=== PATIENT | male | born 1965 | race Caucasian/White ===

== ENCOUNTER 2018-08-13 15:52 | Inpatient (IN) | payer BC, SELFPAY ==
[~2018-08-13 15:52] MED LIST: Esmolol 100 MG/10 ML VIAL ONE; ISOVUE-370 76%-LOCM 1 ML ONE; Lidocaine 1% PF 5 ML VIAL ONE; PHENYLEPHRINE-NS 100 MCG/ML 10 ML SYRINGE ONE; PROPOFOL 200 MG/20 ML VIAL ONE; Rocuronium Bromide 10 MG/ML (10ML VIAL) ONE; Succinylcholine Chloride 20 MG/ML 10 ml SYRINGE FS ONE
[2018-08-13] MEDS ORDERED: Fentanyl 100 MCG/2 ML VIAL ONE ×3 (15:55→16:48)
[2018-08-13] MEDS ORDERED: Adacel (T-DAP) 0.5 ML SYRINGE ONE (16:04)
[2018-08-13] MEDS ORDERED: Heparin 1,000 UNITS/ML VIAL ONE ×2 (16:15→19:47)
[2018-08-13 16:20] LABS: #Basophils 0.1 thou/uL (0.0-0.2); #Eosinphils 0.2 thou/uL (0.0-0.7); #Monocytes 0.6 thou/uL (0.11-0.59); #Neutrophils 5.2 thou/uL (1.40-6.50); %Basophils 1.2 % (0.0-1.0); %Eosinophils 1.7 % (0.0-10.0); %Lymphocytes 33.1 % (21.0-51.0); %Monocytes 6.2 % (0.0-10.0); %Neutrophils 57.7 % (42.0-75.0); Hemoglobin 14.8 g/dL (14.0-18.0); Mean Corpuscular HGB CONC 33.4 g/dL (32.0-36.0); Mean Corpuscular Hemoglobin 31.1 pg (27.0-31.0); Mean Platelet Volume 7.1 fL (7.4-10.4); Platelet Count 379 thou/uL (130-400); RBC Distribution Width 11.9 % (11.5-14.5); Red Blood Cell (RBC) Count 4.76 mill/uL (4.70-6.10); White Blood Cell (WBC) Count 9.1 thou/uL (4.8-10.8)
[2018-08-13 16:28] LABS: PTT 25.8 SEC (22.9-36.1); Prothrombin Time 13.1 SEC (12.0-14.7)
[2018-08-13 16:30] LABS: Bilirubin Negative (Negative); Blood, Urine Negative (Negative); Clarity CLOUDY (Clear); Glucose, Urine (Dipstick) 100 mg/dL (Negative); Leukocyte Small (Negative); Nitrite Negative (Negative); Protein, Urine (Dipstick) 100 mg/dL (Neg-Trace); Specific Gravity, Urine 1.014 (1.002-1.036); pH, Urine 8.5 (5.0-9.0)
[2018-08-13 16:32] LABS: Bacteria/HPF Rare-Few HPF (None Seen); RBC/HPF 0-3 HPF (0-3); Squamous Epithelial 0-3 HPF (0-3)
[2018-08-13 16:35] LABS: ALT (SGPT) 79 U/L (8-55); AST (SGOT) 83 U/L (5-34); Albumin 3.9 g/dL (3.5-5.0); Alkaline Phosphatase 91 U/L (40-150); Anion Gap 19 mmol/L (10-20); BUN (Urea Nitrogen) 12 mg/dL (8.4-25.7); Bilirubin, Total 0.3 mg/dL (0.2-1.2); Calc. Creatinine Clearance 0 mL/min (70-130); Calcium 9.2 mg/dL (7.8-10.44); Carbon Dioxide 19 mmol/L (22-29); Chloride 101 mmol/L (98-107); Estimated GFR-MDRD 66; Globulin 3.5 g/dL (2.4-3.5); Glucose 198 mg/dL (70-105); Potassium 3.8 mmol/L (3.5-5.1); Protein, Total 7.4 g/dL (6.0-8.3); Sodium 135 mmol/L (136-145)
[2018-08-13 16:41] LABS: Hyaline Casts/LPF 0-3 HYALINE CAST LPF (0-3 Hyaline); Manual Microscopic Reviewed? No Path Casts Seen
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
[2018-08-13] MEDS ORDERED: Ondansetron PF 4 MG/2 ML Vial ONE (17:12)
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
[2018-08-13] MEDS ORDERED: Morphine 2 MG/ML SYRINGE ONE (17:34)
[2018-08-13] MEDS ORDERED: Acetaminophen 1,000 MG in Premix Bag 1 BAG IVPB ONE (17:45)
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
--- NOTE | 2018-08-13 18:06 | RAD ---
PORTABLE SUPINE CHEST 08/13/18 PROVIDED CLINICAL HISTORY: Trauma. FINDINGS: Cardiac and mediastinal silhouette appear prominent, likely at least partially on the basis of portab le technique. No definite focal consolidation evident. Evaluation of pericardial fluid and pneumothor ax is limited due to supine nature of the study. Correlate with the subsequently performed CT chest. IMPRESSION: As above. POS: [facility]
--- NOTE | 2018-08-13 18:08 | RAD ---
PELVIC RADIOGRAPH 08/13/18 PROVIDED CLINICAL HISTORY: Trauma. FINDINGS: The left lateral pelvis and left proximal femur are incompletely included on the image. There is no e vidence for fracture or other acute osseous abnormality. Please correlate with subsequent performed C T. IMPRESSION: As above. POS: [facility]
[2018-08-13] MEDS ORDERED: Neomycin-Polymyxin 1 ML AMP ONE ×2 (18:09→19:20)
--- NOTE | 2018-08-13 18:14 | RAD ---
RIGHT FORELEG RADIOGRAPHS TWO VIEWS 08/13/18 PROVIDED CLINICAL HISTORY: Trauma. Markedly comminuted and displaced fractures of the distal tibial and fibular diaphyses. Partially vis ualized talar fracture. Extensive soft tissue gas. Linear radiodensity overlies the lateral aspect of the distal right foreleg proximal to the fracture sites that may reflect radiopaque foreign body. IMPRESSION: 1. Foreleg and hindfoot fractures as above. 2. Possible soft tissue foreign body. Please correlate with previously performed CT examination . POS: [facility]
[2018-08-13] MEDS ORDERED: Acetaminophen 1,000 MG in Premix Bag 1 BAG IVPB SCH (18:15)
--- NOTE | 2018-08-13 18:17 | RAD ---
RIGHT FEMUR RADIOGRAPHS TWO VIEWS: 08/13/18 PROVIDED CLINICAL HISTORY: Trauma. FINDINGS: There is no evidence for fracture or other acute osseous abnormality. Soft tissue gas is seen at the lateral aspect of the mid thigh. Material overlying the proximal right femoral shaft on the groin lat eral view is presumably external to the patient. IMPRESSION: No evidence for an acute osseous abnormality. If there is persistent clinical concern, conservative m anagement and followup imaging are advised. POS: [facility]
--- NOTE | 2018-08-13 18:18 | RAD ---
RIGHT FOOT RADIOGRAPHS TWO VIEWS: 08/13/18 PROVIDED CLINICAL HISTORY: Trauma. FINDINGS: Talar neck fracture and Lisfranc fracture dislocation. Overlying splint material obscures detail. No definite evidence for foreign body. IMPRESSION: Hindfoot and midfoot fractures, incompletely characterized radiographically. POS: [facility]
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
[2018-08-13] MEDS ORDERED: Albumin 25% 100 ML ONE ×2 (19:48→19:50)
[2018-08-13] MEDS ORDERED: Phenylephrine HCL 10 MG/ML VIAL ONE (21:23)
[2018-08-13] MEDS ORDERED: Rocuronium Bromide 50 MG/5 ML VIAL ONE (21:31)
[2018-08-13 23:06] LABS: Actual Bicarbonate (HCO3a) 19.2 mEq/L (22-28); Base Excess (BEa) -8.7 mEq/L (-2.0 to +3.0); CO2 Tension 50.4 mmHg (35.0-45.0); Calcium, Ionized 1.06 mmol/L (1.12-1.30); Carboxyhemoglobin (COHb) 1.5 gm% (0.0-3.0); Hemoglobin (Hb) 11.3 g/dL (14.0-18.0); O2 Tension (PaO2) 84.4 mmHg (80.0-100.0); Potassium - ABG Lab 6.22 mmol/L (3.70-5.30)
[2018-08-13] MEDS ORDERED: Propofol 1,000 MG/100 ML VIAL IV ONE (23:07)
[2018-08-13] MEDS ORDERED: fentaNYL Citrate/PF 2,000 MCG in Sodium Chloride 0.9% 60 ML IV SCH (23:08)
[2018-08-13 23:19] LABS: Puncture Site ALINE
[2018-08-13] MEDS ORDERED: hydrALAZINE 20 MG/ML VIAL SLOW IVP PRN (23:24)
[2018-08-13] MEDS ORDERED: Dextrose 50% Abboject 50 ML SYRINGE SLOW IVP PRN (23:24)
[2018-08-13] MEDS ORDERED: Dextrose 5% in Water 1,000 ML IV PRN (23:24)
[2018-08-13] MEDS ORDERED: Ventilator Sedation Protocol 1 EACH FS SCH (23:30)
[2018-08-13] MEDS ORDERED: Sodium Chloride 0.9% 1,000 ML IV SCH (23:30)
[2018-08-13] MEDS ORDERED: Morphine 2 MG/ML SYRINGE SLOW IVP PRN (23:34)
[2018-08-13] MEDS ORDERED: DISCONTINUE PREVIOUS NARCOTIC PAIN MEDICATIONS AND BENZODIAZEPINES FS SCH (23:34)
[2018-08-13] MEDS ORDERED: Lorazepam 2 MG/ML VIAL SLOW IVP PRN (23:34)
[2018-08-13] MEDS ORDERED: Propofol 1,000 MG/100 ML VIAL IV PRN (23:34)
[2018-08-13] MEDS ORDERED: Fentanyl BOLUS 250 ML IVPB PRN (23:34)
[2018-08-13] MEDS ORDERED: Propofol BOLUS 1,000 MG/100 ML VIAL IV PRN (23:34)
--- NOTE | 2018-08-13 23:56 | RAD ---
PORTABLE AP CHEST X-RAY 08/13/18 HISTORY: On ventilator, postoperative. COMPARISON: 08/13/18 at 1607 hours. FINDINGS: Endotracheal tube is now noted in place with the tip overlying the T2-3 level and above the level of the kirstie. This exam was obtained in a shallow depth of inspiration accentuating the cardiac silhoue tte and mediastinal structures. There is atelectasis at the right lung base. The lungs otherwise appe ar clear. Layered densities seen in the left suprahilar region probably related to vascular structure s and accentuated due to depth of inspiration. IMPRESSION: 1. Endotracheal tube in place. 2. Atelectasis at each lung base. POS: [facility]
[2018-08-14 00:22] VITALS: BMI 38.4
[2018-08-14] MEDS ORDERED: Cyclobenzaprine 10 MG TAB PO PRN ×2 (00:27→16:02)
[2018-08-14] MEDS ORDERED: Dextrose 5% in Water 1,000 ML IV PRN (00:27)
[2018-08-14] MEDS ORDERED: Dextrose 50% Abboject 50 ML SYRINGE SLOW IVP PRN (00:27)
[2018-08-14] MEDS ORDERED: Ondansetron ODT 4 MG TAB PO PRN (00:27)
[2018-08-14] MEDS ORDERED: Insulin Regular 300 UNITS/3 ML VIAL SC PRN (00:27)
[2018-08-14] MEDS ORDERED: Ondansetron PF 4 MG/2 ML Vial IVP PRN (00:27)
[2018-08-14] MEDS ORDERED: Morphine 4 MG/ML VIAL SLOW IVP PRN (00:27)
[2018-08-14] MEDS: Gentamicin Sulfate 100 MG in Premix Bag 1 BAG IVPB SCH ×4 (00:50→12:04)
[2018-08-14] MEDS ORDERED: Morphine 2 MG/ML SYRINGE SLOW IVP PRN (00:52)
[2018-08-14] MEDS: Sodium Chloride 0.9% 1,000 ML IV SCH ×3 (00:58→17:23)
[2018-08-14] MEDS ORDERED: Famotidine/PF 20 mg/2ml Vial SLOW IVP SCH ×2 (01:00→09:00)
[2018-08-14 01:06] LABS: #Lymphocytes 0.9 thou/uL (1.20-3.40); #Monocytes 0.7 thou/uL (0.11-0.59); #Neutrophils 8.2 thou/uL (1.40-6.50); %Basophils 0.4 % (0.0-1.0); %Eosinophils 0.3 % (0.0-10.0); %Lymphocytes 8.8 % (21.0-51.0); %Monocytes 7.2 % (0.0-10.0); %Neutrophils 83.2 % (42.0-75.0); Hemoglobin 10.9 g/dL (14.0-18.0); Mean Corpuscular HGB CONC 32.9 g/dL (32.0-36.0); Mean Corpuscular Hemoglobin 31.4 pg (27.0-31.0); Mean Corpuscular Volume 95.3 fL (78.0-98.0); Mean Platelet Volume 7.4 fL (7.4-10.4); Platelet Count 244 thou/uL (130-400); RBC Distribution Width 12.4 % (11.5-14.5); Red Blood Cell (RBC) Count 3.47 mill/uL (4.70-6.10); White Blood Cell (WBC) Count 9.8 thou/uL (4.8-10.8)
[2018-08-14] MEDS ORDERED: Lactated Ringer's 1,000 ML IV SCH (01:15)
[2018-08-14] MEDS: Albumin 25% 25 GM/100 ML BOT IVPB SCH ×4 (01:16→20:45)
[2018-08-14] MEDS: HumaLOG 300 UNITS/3 ML VIAL SC PRN ×6 (01:21→20:52)
[2018-08-14] MEDS: Acetaminophen 1,000 MG in Premix Bag 1 BAG IVPB SCH ×3 (01:58→14:33)
--- NOTE | 2018-08-14 02:42 | OP ---
DATE OF PROCEDURE: 08/13/2018 PREOPERATIVE DIAGNOSES: 1. Severely comminuted grade 3 open distal right tibia and fibula fracture. 2. Large open wound over the anterior lateral aspect of the right ankle up to the proximal aspect of the leg. 3. Lisfranc fracture dislocation of the 1st, 2nd, 3rd, and 4th tarsometatarsal joints. 4. Talar neck fracture of the right ankle. 5. Deep laceration of the right posterior thigh measuring 8 inches in length. POSTOPERATIVE DIAGNOSES: 1. Severely comminuted grade 3 open distal right tibia and fibula fracture. 2. Large open wound over the anterior lateral aspect of the right ankle up to the proximal aspect of the leg. 3. Lisfranc fracture dislocation of the 1st, 2nd, 3rd, and 4th tarsometatarsal joints. 4. Talar neck fracture of the right ankle. 5. Deep laceration of the right posterior thigh measuring 8 inches in length. PROCEDURES PERFORMED: 1. Irrigation and debridement of large complex open wound on the proximal, middle, and distal leg on the anterior and lateral aspect. 2. Interlocking intramedullary rodding of the right distal tibial shaft. 3. Closed reduction and percutaneous pinning of the Lisfranc joints (1st, 2nd, 3rd, 4th, and 5th tarsometatarsal joints). 4. Multiple pinning and talar neck fracture of the right ankle. 5. Irrigation and debridement of 8-inch laceration in the posterior right thigh with primary closure. ANESTHESIA: General. TECHNIQUE: The patient had been given preoperative IV antibiotics including vancomycin and gentamicin and taken to the operating room, placed in supine position. Satisfactory general anesthesia was performed. The right lower extremity was sterilely prepped and draped up to mid thigh level. The patient had a large complex laceration extending from the anterolateral aspect of the proximal leg down to the ankle with the flap of skin and fat gio laterally. There was also a torn muscle from the extensor digitorum communis muscle and anterior tibialis muscle. The obvious muscle that was necrotic was debrided. The comminuted distal fibula and tibial shaft fracture were noted. Copious irrigation was performed using a high-speed japanese interpreter with antibiotic solution. There was some pieces of plastic that was removed as well as dirt. After the wound was thoroughly irrigated, incision was made on the anteromedial aspect of the proximal leg and a guidewire was placed into the proximal tibia was over-reamed. The guidewire was then placed down the tibia. The fracture of the distal tibia was reduced directly since the wound was completely opened and then the tibia was sequentially reamed up to 10.5. The appropriate length screw was measured and a 9 mm x 375 mm in length elizabeth was inserted into the tibia. A 4.0 locking screw was placed in the proximal aspect of the tibia and elizabeth and two 4.0 locking screws were placed in the tibia and the elizabeth distally. This provided much improved stability to the tibia. The wound again was then irrigated with antibiotic solution using the high-speed japanese interpreter and there was some skin loss particularly in the more distal aspect of the leg, there was already quite a bit of swelling and so Vesseloops were used with the stapler to bring the skin edges closer, but not completely closed since that would have caused too much tension and pressure. Attention was then turned to the Lisfranc joint. The 1st, 2nd, 3rd, 4th and 5th tarsometatarsal joints were all very unstable and was documented with the C-arm. The entire procedure on the leg was done with fluoroscopy with the C-arm. The 1st, 2nd, 3rd, 4th, and 5th tarsometatarsal joints were stabilized using percutaneous 0.062 K-wires from the metatarsals into the cuboid and also from like the first metatarsal into the cuneiforms. This provided excellent alignment and stability for Lisfranc's joint. The neck of the talus was also fractured and under fluoroscopic visualization, two guide pins were placed through the distal medial aspect of the talus was measured, over-reamed, and two 4.0 cannulated screws were placed to provide good stability for the talus. The guide pins were then removed. The other lacerations around the left ankle and leg as well as the incisions that were made for the intramedullary rodding and the interlocking screws were closed with skin stapler. A bulky sterile dressing was applied. The patient was then turned 45 degrees angle to expose posterior aspect of the thigh. This was sterilely prepped and draped. There was a L-shaped approximately 8-inch laceration that extended through the skin and fat down to the fascia. This wound was copiously irrigated with antibiotic solution with the high-speed japanese interpreter and was then closed using #2 and 0 Vicryl for the deeper fat layer and the skin was closed with skin stewart and the wound was closed over 1-inch Byram drain to allow for additional drainage. The sterile dressing was then applied. The patient was placed back in the supine position. A sugar-tong splint was applied to the right leg from just distal to the knee, placed in the ankle in the neutral position. The patient was then transferred to ICU. ESTIMATED BLOOD LOSS: 500 mL. COMPLICATIONS: None. Job ID: [id number]
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
[2018-08-14 04:46] LABS: #Lymphocytes 1.2 thou/uL (1.20-3.40); #Monocytes 0.7 thou/uL (0.11-0.59); #Neutrophils 6.2 thou/uL (1.40-6.50); %Basophils 0.1 % (0.0-1.0); %Eosinophils 0.3 % (0.0-10.0); %Lymphocytes 14.7 % (21.0-51.0); %Monocytes 8.4 % (0.0-10.0); %Neutrophils 76.4 % (42.0-75.0); Hemoglobin 9.6 g/dL (14.0-18.0); Mean Corpuscular HGB CONC 33.5 g/dL (32.0-36.0); Mean Corpuscular Hemoglobin 31.8 pg (27.0-31.0); Mean Platelet Volume 7.6 fL (7.4-10.4); Platelet Count 207 thou/uL (130-400); RBC Distribution Width 12.5 % (11.5-14.5); Red Blood Cell (RBC) Count 3.03 mill/uL (4.70-6.10); White Blood Cell (WBC) Count 8.1 thou/uL (4.8-10.8)
[2018-08-14 04:58] LABS: Hemoglobin A1c 7.8 % (4.0-6.0)
[2018-08-14 05:19] LABS: Anion Gap 17 mmol/L (10-20); BUN (Urea Nitrogen) 16 mg/dL (8.4-25.7); Calc. Creatinine Clearance 107 mL/min (70-130); Calcium 7.9 mg/dL (7.8-10.44); Carbon Dioxide 19 mmol/L (22-29); Chloride 104 mmol/L (98-107); Estimated GFR-MDRD 50; Glucose 313 mg/dL (70-105); Potassium 6.2 mmol/L (3.5-5.1); Sodium 134 mmol/L (136-145)
[2018-08-14] MEDS: Vancomycin HCl 1.5 GM in Sodium Chloride 0.9% 250 ML 300 ML IVPB SCH ×2 (05:25→17:50)
[2018-08-14 06:28] LABS: Hemoglobin 9.7 g/dL (14.0-18.0)
[2018-08-14 06:47] LABS: Anion Gap 18 mmol/L (10-20); BUN (Urea Nitrogen) 16 mg/dL (8.4-25.7); Calc. Creatinine Clearance 118 mL/min (70-130); Calcium 7.8 mg/dL (7.8-10.44); Carbon Dioxide 17 mmol/L (22-29); Chloride 106 mmol/L (98-107); Estimated GFR-MDRD 56; Glucose 282 mg/dL (70-105); Magnesium 1.5 mg/dL (1.6-2.6); Phosphorus 2.7 mg/dL (2.3-4.7); Potassium 5.3 mmol/L (3.5-5.1); Sodium 136 mmol/L (136-145)
[2018-08-14] MEDS: Pantoprazole 40 MG VIAL IVP SCH (08:12)
[2018-08-14 08:34] LABS: Actual Bicarbonate (HCO3a) 21.3 mEq/L (22-28); Base Excess (BEa) -3.2 mEq/L (-2.0 to +3.0); CO2 Tension 35.7 mmHg (35.0-45.0); Calcium, Ionized 0.99 mmol/L (1.12-1.30); Carboxyhemoglobin (COHb) 0.8 gm% (0.0-3.0); Hemoglobin (Hb) 9.7 g/dL (14.0-18.0); O2 Tension (PaO2) 118.5 mmHg (80.0-100.0); Potassium - ABG Lab 4.43 mmol/L (3.70-5.30); pH, Arterial 7.39 (7.35-7.45)
[2018-08-14] MEDS ORDERED: Magnesium Sulfate 3 GM in Sodium Chloride 0.9% 100 ML IVPB SCH (09:15)
--- NOTE | 2018-08-14 09:37 | RAD ---
RIGHT FOOT 3 VIEWS: Date: 08/14/18 PROVIDED CLINICAL HISTORY: Post open reduction and internal fixation. FINDINGS: Comparison made with the study dated 08/13/18. Interval open reduction and internal fixation of talar neck fracture with resultant near anatomic ali gnment. Percutaneous pinning of Lisfranc fracture/dislocation with subsequent improved alignment. Barrett mcmillan visualized postoperative changes involving tibia. IMPRESSION: Interval postoperative change. POS: BRIAN
--- NOTE | 2018-08-14 09:49 | RAD ---
RIGHT ANKLE 3 VIEWS: Date: 08/14/18 PROVIDED CLINICAL HISTORY: Open reduction and internal fixation. FINDINGS: Comparison made with the examination performed 08/13/18. Interval intramedullary tibial nail with distal interlocking screws transfixing previously described distal tibial shaft fracture. Interval postoperative changes involving the foot as described on concu rrent foot radiographs. IMPRESSION: Interval postoperative change. POS: BRIAN
--- NOTE | 2018-08-14 09:56 | RAD ---
RIGHT FORELEG RADIOGRAPHS 2 VIEWS: Date: 08/14/18 PROVIDED CLINICAL HISTORY: Open reduction and internal fixation. FINDINGS: Comparison with 08/13/18. Interval antegrade intramedullary tibial nail with proximal and distal interlocking screws transfixin g the previously described tibial fracture with subsequent improved alignment. Comminuted segmental f ibular fracture redemonstrated. Postoperative changes involving the foot partially visualized. Georgina us cutaneous stewart overlie the foreleg. IMPRESSION: Interval postoperative change. POS: BRIAN
--- NOTE | 2018-08-14 10:02 | RAD ---
PORTABLE CHEST: Date: 08/14/18 PROVIDED CLINICAL HISTORY: Respiratory insufficiency. FINDINGS: Comparison made with the study dated 08/13/18. Cardiac and mediastinal silhouette is unchanged in appearance. Endotracheal tube is noted, tip of whi ch projects in the region of the thoracic inlet. Parenchymal opacity is present at the medial left maile ng base that may reflect volume loss or infiltrate. There is no evidence for pneumothorax or large ef fusion. The lungs are hypoinflated, limiting evaluation. IMPRESSION: 1. Endotracheal tube in similar position. 2. Parenchymal opacity left lung base medially. POS: FARIBA
[2018-08-14 10:17] LABS: Puncture Site L.R.
[2018-08-14 10:18] LABS: ALV-art Gradient 122.075 (0-20)
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
[2018-08-14 12:52] LABS: Hemoglobin 8.5 g/dL (14.0-18.0)
[2018-08-14] MEDS ORDERED: Lorazepam 2 MG/ML VIAL SLOW IVP SCH (13:15)
--- NOTE | 2018-08-14 15:29 | MRI ---
MRI CERVICAL SPINE: Date: 08/14/18 PROVIDED CLINICAL HISTORY: Neck pain status post injury. FINDINGS: Comparison made with the CT examination of 08/13/18. There is extensive fluid signal intensity present within the atlanto-occipital interspaces bilaterall y, compatible with disruption of the atlanto-occipital joint capsules bilaterally. Fluid signal inten sity in the axio-atlantal joints may reflect capsular disruption. There is disruption of the apical and cruciate ligaments, as well as the tectorial membrane at the le celine of the dens. Disruption of the anterior atlanto-occipital membrane is also present, as well as di sruption of the anterior ligament at the level of the C1-2 articulation. There is extensive prevertebral fluid present anterior to the upper cervical spine. There is extensiv e fluid signal intensity present at the level of the C1-2 interspinous ligament, compatible with disr uption. Edema inferior to the posterior skull base may reflect injury of the posterior atlanto-occipi germaine membrane. The ligamentum flavum appears intact. The transverse ligament appears intact. There is no widening of the atlantodental distance. There is no evidence for intraspinal hematoma. The visualized posterior fossa, cervicomedullary junction, and proximal spinal cord demonstrate no evidence for traumatic abnormality. The mid to lower cervical cor d is likely normal, though artifact obscures portions on the fluid sensitive sequences, and this area is poorly visualized on the axial sequences due to patient motion. Broad based disc bulges are present at C3-4 and C5-6 with mild central canal stenosis. Evaluation of foraminal narrowing is markedly limited due to patient motion on the axial sequences. IMPRESSION: Extensive ligamentous injury at the occipito-atlantal and axio-atlantal relationship as described abo stephani. POS: BRIAN
[2018-08-14 15:53] LABS: Actual Bicarbonate (HCO3a) 25.6 mEq/L (22-28); Base Excess (BEa) 0.1 mEq/L (-2.0 to +3.0); CO2 Tension 45.6 mmHg (35.0-45.0); Calcium, Ionized 1.04 mmol/L (1.12-1.30); Carboxyhemoglobin (COHb) 1.1 gm% (0.0-3.0); Hemoglobin (Hb) 8.4 g/dL (14.0-18.0); O2 Tension (PaO2) 87.6 mmHg (80.0-100.0); Potassium - ABG Lab 4.41 mmol/L (3.70-5.30); pH, Arterial 7.37 (7.35-7.45)
[2018-08-14 15:56] LABS: Puncture Site L.R.
[2018-08-14] MEDS ORDERED: traMADol HCl 50 MG TAB PO PRN (16:02)
[2018-08-14] MEDS ORDERED: Acetaminophen 1,000 MG in Premix Bag 1 BAG IVPB SCH (16:15)
[2018-08-14] MEDS: traMADol HCl 50 MG TAB PO PRN (17:51)
[2018-08-14 19:15] LABS: Hemoglobin 8.1 g/dL (14.0-18.0)
--- NOTE | 2018-08-14 19:15 | PRG ---
DATE OF SERVICE: 08/14/2018 SUBJECTIVE: Jamari Ventura is doing well today. I saw him early this morning and he is ventilated, was started to be weaned. He went to MRI and after MRI, he was extubated. OBJECTIVE: VITAL SIGNS: Temperature 97.7 degrees, blood pressure 141/74, heart rate 112. LUNGS: Clear to auscultation. CARDIAC: Regular rate and rhythm without murmur or gallop. ABDOMEN: Soft and nontender. EXTREMITIES: Splint in right leg. LABORATORY DATA: White count 8, hemoglobin 9.6, recheck his hemoglobin this evening 8.5. Basic metabolic profile; his potassium is 5.3, sodium 136, creatinine 1.35. MRI pending. The patient has occipital fracture and ligamentous instability, wearing a C-collar. Status post ORIF of his right leg. Dr. Martínez is following him and he will have some skin coverage issues to be dealt with over a period of time. ASSESSMENT/PLAN: 1. Doing well, status post extubation this morning. 2. Status post open reduction and internal fixation, right leg with skin coverage issues. We will review the wound per Dr. Martínez. 3. Cervical spine injury per Neurosurgery. Job ID: [id number]
[2018-08-14] MEDS: Ibuprofen 600 MG TAB PO SCH (21:04)
[2018-08-14] MEDS ORDERED: Gabapentin 300 MG CAP PO SCH (22:30)
[2018-08-14] MEDS: Gabapentin 300 MG CAP PO SCH (22:30)
[2018-08-15] MEDS: Sodium Chloride 0.9% 1,000 ML IV SCH ×3 (00:19→19:32)
[2018-08-15] MEDS: Acetaminophen 500 MG TAB PO SCH ×5 (00:21→23:52)
[2018-08-15 05:12] LABS: #Monocytes 0.6 thou/uL (0.11-0.59); #Neutrophils 5.7 thou/uL (1.40-6.50); %Basophils 0.6 % (0.0-1.0); %Eosinophils 0.6 % (0.0-10.0); %Lymphocytes 14.2 % (21.0-51.0); %Monocytes 7.5 % (0.0-10.0); %Neutrophils 77.2 % (42.0-75.0); Hemoglobin 7.7 g/dL (14.0-18.0); Mean Corpuscular HGB CONC 32.9 g/dL (32.0-36.0); Mean Corpuscular Hemoglobin 31.4 pg (27.0-31.0); Mean Corpuscular Volume 95.5 fL (78.0-98.0); Mean Platelet Volume 7.3 fL (7.4-10.4); Platelet Count 174 thou/uL (130-400); RBC Distribution Width 12.5 % (11.5-14.5); Red Blood Cell (RBC) Count 2.46 mill/uL (4.70-6.10); White Blood Cell (WBC) Count 7.3 thou/uL (4.8-10.8)
[2018-08-15] MEDS: Ibuprofen 600 MG TAB PO SCH ×3 (05:12→21:34)
[2018-08-15 05:32] LABS: Anion Gap 12 mmol/L (10-20); BUN (Urea Nitrogen) 12 mg/dL (8.4-25.7); Calc. Creatinine Clearance 189 mL/min (70-130); Calcium 8.1 mg/dL (7.8-10.44); Carbon Dioxide 21 mmol/L (22-29); Chloride 108 mmol/L (98-107); Estimated GFR-MDRD Greater than 90; Glucose 199 mg/dL (70-105); Magnesium 2.3 mg/dL (1.6-2.6); Potassium 4.4 mmol/L (3.5-5.1); Sodium 137 mmol/L (136-145)
[2018-08-15 05:40] LABS: Phosphorus 1.9 mg/dL (2.3-4.7)
[2018-08-15] MEDS: HumaLOG 300 UNITS/3 ML VIAL SC PRN ×2 (06:01→12:09)
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
[2018-08-15] MEDS ORDERED: Famotidine/PF 20 mg/2ml Vial SLOW IVP SCH (09:00)
[2018-08-15] MEDS: Pantoprazole 40 MG VIAL IVP SCH (09:30)
[2018-08-15] MEDS: Gabapentin 300 MG CAP PO SCH (09:42)
[2018-08-15 11:27] LABS: Hemoglobin A1c 7.8 % (4.0-6.0)
[2018-08-15] MEDS ORDERED: Potassium Phosphate 15 MMOL in Sodium Chloride 0.9% 250 ML 250 ML IVPB SCH (11:38)
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
[2018-08-15] MEDS: hydrALAZINE 20 MG/ML VIAL SLOW IVP PRN (15:37)
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
--- NOTE | 2018-08-15 20:33 | PRG ---
DATE OF SERVICE: 08/15/2018 SUBJECTIVE: The patient has been extubated and yesterday was transferred out of the intensive care unit to the regular floor. The patient states that he is doing fairly well. He is able to feel his toes and he is able to move his toes. OBJECTIVE: VITAL SIGNS: The patient has been afebrile. Last blood pressure 144/100, respiratory rate 19, and heart rate 117. The splint and dressing were removed earlier today and was evaluated by Dr. Deluna. He was consulted because of the soft tissue deficit on the anterior aspect of the distal right leg just above the ankle. Wound VACs were applied to the right leg and to the posterior right thigh wound and the patient was placed back in a new sugar-tong splint. The patient is able to flex and extend all of his toes well, has good capillary refill. LABORATORY DATA: The patient's laboratory today hemoglobin 7.7 and hematocrit 23.5. X-rays were reviewed of the hip as well as the CAT scan of the hip and the patient does have a comminuted fracture of the posterior aspect of the acetabulum, which involves a very small portion of the articular surface and no other weightbearing surface in the hip appears to be stable and the acetabular fractures do not require surgery. PLAN: Physical Therapy work with the patient, try to increase activities and help mobilize the patient as tolerated. He does have a right sixth rib fracture, which will also limit him as well as the ligamentous injury between the occiput and C1 and between C1 and C2. These evidently do not need surgery and he will stay in a hard collar for that, but the right sixth rib fracture will also be very hard on mobilization of the patient because he will have to be nonweightbearing on the right lower extremity. Plan on taking him back to the operating room on for a re-washout and try to close as much of the wounds as possible. The parts that remain open will be evaluated and treated by Dr. Deluna. Job ID: [id number]
[2018-08-15] MEDS: Senokot S 8.6-50 MG TAB PO SCH (20:35)
[2018-08-15] MEDS: Enoxaparin Sodium 40 MG/0.4 ML SYRINGE SC SCH (20:35)
[2018-08-15] MEDS: Gabapentin 100 MG CAP PO SCH (20:35)
[2018-08-16] MEDS: hydrALAZINE 20 MG/ML VIAL SLOW IVP PRN ×2 (00:39→04:59)
[2018-08-16] MEDS: Sodium Chloride 0.9% 1,000 ML IV SCH ×2 (03:35→10:40)
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
[2018-08-16] MEDS: Ibuprofen 600 MG TAB PO SCH ×3 (05:03→20:59)
[2018-08-16] MEDS: Acetaminophen 500 MG TAB PO SCH ×4 (05:04→23:54)
[2018-08-16] MEDS: HumaLOG 300 UNITS/3 ML VIAL SC PRN ×2 (05:47→12:31)
[2018-08-16 06:51] LABS: Phosphorus 2.1 mg/dL (2.3-4.7)
[2018-08-16 06:56] LABS: Anion Gap 13 mmol/L (10-20); BUN (Urea Nitrogen) 9 mg/dL (8.4-25.7); Calc. Creatinine Clearance 201 mL/min (70-130); Calcium 8.4 mg/dL (7.8-10.44); Carbon Dioxide 18 mmol/L (22-29); Chloride 106 mmol/L (98-107); Estimated GFR-MDRD Greater than 90; Glucose 194 mg/dL (70-105); Magnesium 2.1 mg/dL (1.6-2.6); Potassium 4.2 mmol/L (3.5-5.1); Sodium 133 mmol/L (136-145)
[2018-08-16] MEDS ORDERED: Potassium Phosphate 15 MMOL in Sodium Chloride 0.9% 250 ML 250 ML IVPB SCH (07:58)
[2018-08-16] MEDS: Gabapentin 100 MG CAP PO SCH (08:35)
[2018-08-16] MEDS: Pantoprazole 40 MG VIAL IVP SCH (08:35)
[2018-08-16] MEDS: Senokot S 8.6-50 MG TAB PO SCH ×2 (08:35→20:59)
[2018-08-16] MEDS: Polyethylene Glycol 3350 17 GM Packet PO SCH (08:35)
[2018-08-16 09:29] LABS: #Eosinphils 0.1 thou/uL (0.0-0.7); #Lymphocytes 1.6 thou/uL (1.20-3.40); #Monocytes 0.5 thou/uL (0.11-0.59); #Neutrophils 5.9 thou/uL (1.40-6.50); %Basophils 0.3 % (0.0-1.0); %Eosinophils 1.1 % (0.0-10.0); %Lymphocytes 19.7 % (21.0-51.0); %Monocytes 6.6 % (0.0-10.0); %Neutrophils 72.3 % (42.0-75.0); Hemoglobin 8.1 g/dL (14.0-18.0); Mean Corpuscular HGB CONC 33.8 g/dL (32.0-36.0); Mean Corpuscular Hemoglobin 31.8 pg (27.0-31.0); Mean Corpuscular Volume 94.2 fL (78.0-98.0); Mean Platelet Volume 7.1 fL (7.4-10.4); Platelet Count 224 thou/uL (130-400); RBC Distribution Width 12.3 % (11.5-14.5); Red Blood Cell (RBC) Count 2.53 mill/uL (4.70-6.10); White Blood Cell (WBC) Count 8.2 thou/uL (4.8-10.8)
[2018-08-16] MEDS ORDERED: Lisinopril 10 MG TAB PO SCH (11:00)
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
--- NOTE | 2018-08-16 15:33 | SPC ---
PICC PLACEMENT ULTRASOUND GUIDED VENOUS ACCESS: (Peripherally Inserted Central Catheter) DATE: 08/16/2018. HISTORY: A 53-year-old male with urinary tract infection requiring long-term IV antibiotics. TECHNIQUE: Catheter caliber: 5 Kazakh. Catheter trim length: 41 cm. Catheter lumen number: single. Catheter tip location: upper portion of superior vena cava. Vein accessed: left basilic. Total Fluoroscopy Time: 0.3 minutes. Dose Area Product: 3755 mGy*cm^2. Signed, informed consent was obtained. A tourniquet was applied at the proximal aspect of the arm. The arm was prepared and draped in the usual sterile fashion. A 25 gauge needle was used to apply bu ffered lidocaine superficially. The vein was punctured with a 21 gauge micropuncture needle under ul trasound guidance. A 0.018 inch guide wire was advanced through the micropuncture needle and into th e vein. Under fluoroscopic guidance, the guide wire was advanced to the right atrium. The PICC (per ipherally inserted central catheter) was flushed and trimmed to the appropriate length. The skin pun cture hole was widened with a blade. The micropuncture needle was exchanged over the guide wire for a 5 Kazakh peel-away dilator sheath. The dilator was exchanged over the guide wire for the PICC, whi ch was then further advanced under fluoroscopy. The sheath and guide wire were removed. The PICC wa s flushed again and secured in place at the arm. The patient tolerated the procedure well. There wa s no complication. IMPRESSION: Successful placement of PICC (peripherally inserted central catheter) shaw [] POS: FARIBA
[2018-08-16] MEDS: Enoxaparin Sodium 40 MG/0.4 ML SYRINGE SC SCH (20:59)
[2018-08-17 05:23] LABS: Band 1 % (5-11); Eosinophils 3 % (0-10); Hemoglobin 7.4 g/dL (14.0-18.0); Lymphocytes 18 % (21-51); MDiff Complete? YES; Mean Corpuscular HGB CONC 33.9 g/dL (32.0-36.0); Mean Corpuscular Hemoglobin 31.9 pg (27.0-31.0); Mean Corpuscular Volume 94.1 fL (78.0-98.0); Mean Platelet Volume 6.9 fL (7.4-10.4); Monocytes 8 % (0-10); Neutrophil 70 % (42-75); Platelet Count 272 thou/uL (130-400); RBC Distribution Width 12.3 % (11.5-14.5); Red Blood Cell (RBC) Count 2.31 mill/uL (4.70-6.10); White Blood Cell (WBC) Count 7.8 thou/uL (4.8-10.8)
[2018-08-17] MEDS: traMADol HCl 50 MG TAB PO PRN (05:48)
[2018-08-17] MEDS: Acetaminophen 500 MG TAB PO SCH ×3 (05:48→18:20)
[2018-08-17 05:49] LABS: Anion Gap 12 mmol/L (10-20); BUN (Urea Nitrogen) 10 mg/dL (8.4-25.7); Calc. Creatinine Clearance 209 mL/min (70-130); Calcium 8.7 mg/dL (7.8-10.44); Carbon Dioxide 23 mmol/L (22-29); Chloride 104 mmol/L (98-107); Estimated GFR-MDRD Greater than 90; Glucose 145 mg/dL (70-105); Magnesium 2.1 mg/dL (1.6-2.6); Potassium 3.5 mmol/L (3.5-5.1); Sodium 135 mmol/L (136-145)
[2018-08-17] MEDS: Ibuprofen 600 MG TAB PO SCH ×3 (05:49→20:40)
[2018-08-17] MEDS ORDERED: Potassium Chloride 20 MEQ TAB PO SCH (07:30)
[2018-08-17] MEDS: Senokot S 8.6-50 MG TAB PO SCH ×2 (08:51→20:42)
[2018-08-17] MEDS: Polyethylene Glycol 3350 17 GM Packet PO SCH (08:51)
[2018-08-17] MEDS: hydrALAZINE 20 MG/ML VIAL SLOW IVP PRN (08:51)
[2018-08-17 09:20] LABS: Actual Bicarbonate (HCO3v) 23 mEq/L (22-28); Analyzer IN Cardio OR; Base Excess -5.5 mEq/L (-2.0 to +3.0); Calcium, Ionized 1.05 mmol/L (1.16-1.32); Chloride (ABG LAB) 104 mmol/L (98-106); Hemoglobin (Hb) 12.2 g/dL (13.1-17.2); Potassium - ABG Lab 5.54 mmol/L (3.70-5.30); Sodium 132.1 mmol/L (133-146)
[2018-08-17 09:40] LABS: pH (venous) 7.23 (7.32-7.43)
[2018-08-17] MEDS: HumaLOG 300 UNITS/3 ML VIAL SC PRN (12:56)
[2018-08-17] MEDS ORDERED: Lisinopril 10 MG TAB PO SCH (13:00)
[2018-08-17] MEDS ORDERED: Vancomycin HCl 1.5 GM in Sodium Chloride 0.9% 250 ML 300 ML IVPB SCH (13:15)
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
[2018-08-17] MEDS: Melatonin 3 MG TAB PO SCH (20:41)
[2018-08-17] MEDS: Metoprolol Tartrate 25 MG TAB PO SCH (20:41)
[2018-08-17] MEDS ORDERED: Enoxaparin Sodium 40 MG/0.4 ML SYRINGE SC SCH (21:00)
[2018-08-18] MEDS: Acetaminophen 500 MG TAB PO SCH ×4 (00:59→17:08)
[2018-08-18] MEDS: Sodium Chloride 0.9% 1,000 ML IV SCH ×2 (01:59→10:00)
[2018-08-18] MEDS: Metoprolol Tartrate 25 MG TAB PO SCH ×2 (05:43→21:43)
[2018-08-18] MEDS: Ibuprofen 600 MG TAB PO SCH ×3 (05:44→21:43)
[2018-08-18] MEDS ORDERED: Neomycin-Polymyxin 1 ML AMP ONE (06:40)
[2018-08-18 06:46] LABS: #Basophils 0.1 thou/uL (0.0-0.2); #Eosinphils 0.3 thou/uL (0.0-0.7); #Lymphocytes 1.5 thou/uL (1.20-3.40); #Monocytes 0.7 thou/uL (0.11-0.59); #Neutrophils 5.7 thou/uL (1.40-6.50); %Basophils 0.8 % (0.0-1.0); %Eosinophils 3.6 % (0.0-10.0); %Lymphocytes 17.8 % (21.0-51.0); %Monocytes 8.7 % (0.0-10.0); %Neutrophils 69.1 % (42.0-75.0); Hemoglobin 7.6 g/dL (14.0-18.0); Mean Corpuscular HGB CONC 34.1 g/dL (32.0-36.0); Mean Corpuscular Hemoglobin 32.2 pg (27.0-31.0); Mean Corpuscular Volume 94.4 fL (78.0-98.0); Mean Platelet Volume 6.7 fL (7.4-10.4); Platelet Count 342 thou/uL (130-400); RBC Distribution Width 12.5 % (11.5-14.5); Red Blood Cell (RBC) Count 2.35 mill/uL (4.70-6.10); White Blood Cell (WBC) Count 8.2 thou/uL (4.8-10.8)
[2018-08-18 06:50] LABS: Prothrombin Time 13.3 SEC (12.0-14.7)
[2018-08-18] MEDS ORDERED: Midazolam HCl 2 mg/2 ml Vial ONE ×2 (07:21→09:26)
[2018-08-18] MEDS ORDERED: Fentanyl 100 MCG/2 ML VIAL ONE ×3 (07:21→10:12)
[2018-08-18 07:22] LABS: Anion Gap 12 mmol/L (10-20); BUN (Urea Nitrogen) 13 mg/dL (8.4-25.7); Calc. Creatinine Clearance 204 mL/min (70-130); Calcium 8.8 mg/dL (7.8-10.44); Carbon Dioxide 24 mmol/L (22-29); Chloride 104 mmol/L (98-107); Estimated GFR-MDRD Greater than 90; Glucose 148 mg/dL (70-105); Phosphorus 4.2 mg/dL (2.3-4.7); Potassium 3.6 mmol/L (3.5-5.1); Sodium 136 mmol/L (136-145)
--- NOTE | 2018-08-18 07:33 | PRG ---
DATE OF SERVICE: 08/17/2018 Mr. Ventura has good pain control. He is completely awake and alert. The patient has been afebrile. His vital signs have been stable. His last vital signs shows temperature 98.2, pulse 106, respiratory rate 18, blood pressure 164/98, and oxygen saturation 94% on room air. Laboratory from this morning shows hemoglobin of 7.4, hematocrit 21.7. Sodium is slightly low at 135 and glucose is at 145. The remaining values are normal. The dressing of the right leg is dry and intact. The patient has good capillary refill in all of his toes and is able to flex and extend all of his toes well. PLAN: I Discussed with the patient that he will be taken to the operating room tomorrow morning for irrigation and debridement and potential delayed primary closure whenever open wounds are still present. He has skin loss in the anterior aspect of the right leg just proximal to the ankle that Dr. Deluna is evaluating. I discussed with Dr. Deluna today that I will be taking him to surgery. He will be seeing him in the morning prior to surgery for evaluation of the wound also. Job ID: [id number]
[2018-08-18] MEDS ORDERED: Potassium Phosphate 30 MMOL in Sodium Chloride 0.9% 500 ML IVPB ONE (07:40)
[2018-08-18] MEDS ORDERED: Potassium Chloride 40 MEQ in Premix Bag 1 BAG IVPB SCH (08:15)
[2018-08-18] MEDS: Polyethylene Glycol 3350 17 GM Packet PO SCH (09:00)
[2018-08-18] MEDS: Senokot S 8.6-50 MG TAB PO SCH ×2 (09:00→20:22)
[2018-08-18] MEDS ORDERED: Bisacodyl 10 MG SUPP PR PRN (09:11)
[2018-08-18] MEDS ORDERED: HYDROcodone/Acetaminophen 10/325 mg Tablet PO PRN ×2 (09:11)
[2018-08-18] MEDS ORDERED: Ondansetron PF 4 MG/2 ML Vial IVP PRN (09:11)
[2018-08-18] MEDS ORDERED: Ondansetron ODT 4 MG TAB PO PRN (09:11)
[2018-08-18] MEDS ORDERED: Acetaminophen 325 MG TAB PO PRN (09:11)
[2018-08-18] MEDS ORDERED: traMADol HCl 50 MG TAB PO PRN (09:11)
[2018-08-18] MEDS ORDERED: Fentanyl 100 MCG/2 ML VIAL SLOW IVP PRN (09:11)
[2018-08-18] MEDS ORDERED: Cepastat Lozenges 1 LOZ PO PRN (09:11)
[2018-08-18] MEDS ORDERED: Ondansetron PF 4 MG/2 ML Vial IV PRN (09:11)
[2018-08-18] MEDS ORDERED: Fleet Enema 133 ML BOT PR PRN (09:11)
[2018-08-18] MEDS ORDERED: Milk Of Magnesia 30 ML UDCUP PO PRN (09:11)
[2018-08-18] MEDS ORDERED: TETANUS AND DIPHTHERIA TOX/PF 0.5 ML DISP.SYRIN IM SCH (09:15)
[2018-08-18] MEDS ORDERED: Communication Order-Pharmacy FS ONE (09:15)
[2018-08-18] MEDS ORDERED: Metoprolol Tartrate 5 MG/5 ML VIAL ONE (10:06)
[2018-08-18] MEDS ORDERED: Ondansetron HCl/PF 4 MG/2 ML Vial IVP PRN (10:09)
[2018-08-18] MEDS ORDERED: Promethazine HCl 25 MG/ML VIAL IM PRN (10:09)
[2018-08-18] MEDS ORDERED: Promethazine HCl 25 MG/ML VIAL SLOW IVP PRN (10:09)
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
[2018-08-18] MEDS: Lisinopril 10 MG TAB PO SCH ×2 (13:38→15:35)
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
[2018-08-18] MEDS ORDERED: Rocuronium Bromide 10 MG/ML (10ML VIAL) ONE (15:25)
[2018-08-18] MEDS ORDERED: PHENYLEPHRINE-NS 100 MCG/ML 10 ML SYRINGE ONE (15:25)
[2018-08-18] MEDS ORDERED: PROPOFOL 200 MG/20 ML VIAL ONE (15:25)
[2018-08-18] MEDS ORDERED: Lidocaine 1% PF 5 ML VIAL ONE (15:25)
[2018-08-18] MEDS: HumaLOG 300 UNITS/3 ML VIAL SC PRN (17:09)
[2018-08-18] MEDS ORDERED: Senokot S 8.6-50 MG TAB PO SCH (21:00)
[2018-08-18] MEDS: Vancomycin HCl 1.5 GM in Sodium Chloride 0.9% 250 ML 300 ML IVPB SCH (21:42)
[2018-08-18] MEDS: Melatonin 3 MG TAB PO SCH (21:42)
[2018-08-18] MEDS: Aspirin 81 mg Enteric Coated Tablet PO SCH (21:43)
[2018-08-18] MEDS: Enoxaparin Sodium 40 MG/0.4 ML SYRINGE SC SCH (21:43)
[2018-08-18] MEDS: Ferrous Gluconate 324 MG TAB PO SCH (21:43)
[2018-08-19] MEDS: Acetaminophen 500 MG TAB PO SCH ×4 (00:59→17:45)
[2018-08-19] MEDS: traMADol HCl 50 MG TAB PO PRN ×2 (04:01→20:35)
[2018-08-19 04:23] LABS: #Basophils 0.1 thou/uL (0.0-0.2); #Eosinphils 0.3 thou/uL (0.0-0.7); #Lymphocytes 1.7 thou/uL (1.20-3.40); #Monocytes 0.8 thou/uL (0.11-0.59); #Neutrophils 5.7 thou/uL (1.40-6.50); %Basophils 0.9 % (0.0-1.0); %Monocytes 9.4 % (0.0-10.0); %Neutrophils 66.6 % (42.0-75.0); Hemoglobin 7.5 g/dL (14.0-18.0); Mean Corpuscular HGB CONC 32.7 g/dL (32.0-36.0); Mean Corpuscular Hemoglobin 31.3 pg (27.0-31.0); Mean Corpuscular Volume 95.8 fL (78.0-98.0); Mean Platelet Volume 6.5 fL (7.4-10.4); Platelet Count 374 thou/uL (130-400); Red Blood Cell (RBC) Count 2.38 mill/uL (4.70-6.10); White Blood Cell (WBC) Count 8.5 thou/uL (4.8-10.8)
[2018-08-19 04:41] LABS: Phosphorus 3.8 mg/dL (2.3-4.7)
[2018-08-19 04:45] LABS: ALT (SGPT) 31 U/L (8-55); AST (SGOT) 36 U/L (5-34); Albumin 3.2 g/dL (3.5-5.0); Alkaline Phosphatase 51 U/L (40-150); Anion Gap 14 mmol/L (10-20); BUN (Urea Nitrogen) 14 mg/dL (8.4-25.7); Bilirubin, Total 0.7 mg/dL (0.2-1.2); Calc. Creatinine Clearance 187 mL/min (70-130); Calcium 8.5 mg/dL (7.8-10.44); Carbon Dioxide 23 mmol/L (22-29); Chloride 102 mmol/L (98-107); Estimated GFR-MDRD Greater than 90; Globulin 2.9 g/dL (2.4-3.5); Glucose 171 mg/dL (70-105); Magnesium 1.9 mg/dL (1.6-2.6); Potassium 3.9 mmol/L (3.5-5.1); Protein, Total 6.1 g/dL (6.0-8.3); Sodium 135 mmol/L (136-145)
[2018-08-19] MEDS: Ibuprofen 600 MG TAB PO SCH ×3 (05:54→20:36)
[2018-08-19] MEDS: Enoxaparin Sodium 40 MG/0.4 ML SYRINGE SC SCH ×2 (08:50→20:37)
[2018-08-19] MEDS: Polyethylene Glycol 3350 17 GM Packet PO SCH (08:50)
[2018-08-19] MEDS: Vancomycin HCl 1.5 GM in Sodium Chloride 0.9% 250 ML 300 ML IVPB SCH (08:51)
[2018-08-19] MEDS: Ferrous Gluconate 324 MG TAB PO SCH ×2 (08:51→20:36)
[2018-08-19] MEDS: Senokot S 8.6-50 MG TAB PO SCH ×2 (08:51→20:18)
[2018-08-19] MEDS: Multivitamin W/ Minerals 1 TAB PO SCH (08:51)
[2018-08-19] MEDS: Aspirin 81 mg Enteric Coated Tablet PO SCH ×2 (08:51→20:36)
[2018-08-19] MEDS: Metoprolol Tartrate 25 MG TAB PO SCH ×2 (08:51→20:37)
[2018-08-19] MEDS ORDERED: Ascorbic Acid 500 mg Chewable Tablet PO SCH (09:00)
[2018-08-19] MEDS ORDERED: Enoxaparin Sodium 40 MG/0.4 ML SYRINGE SC SCH (09:00)
[2018-08-19] MEDS: Lisinopril 10 MG TAB PO SCH (12:19)
[2018-08-19] MEDS: hydrALAZINE 20 MG/ML VIAL SLOW IVP PRN ×2 (12:20→18:33)
[2018-08-19] MEDS: HumaLOG 300 UNITS/3 ML VIAL SC PRN ×2 (12:29→18:34)
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
[2018-08-19] MEDS: Ascorbic Acid 500 mg Chewable Tablet PO SCH (20:35)
[2018-08-19] MEDS: Melatonin 3 MG TAB PO SCH (20:36)
[2018-08-20] MEDS: Acetaminophen 500 MG TAB PO SCH ×4 (00:56→17:56)
[2018-08-20] MEDS: Ibuprofen 600 MG TAB PO SCH ×3 (05:23→21:25)
[2018-08-20] MEDS: HumaLOG 300 UNITS/3 ML VIAL SC PRN ×3 (05:36→17:57)
[2018-08-20 05:56] LABS: Hemoglobin 7.5 g/dL (14.0-18.0); Mean Corpuscular Hemoglobin 31.4 pg (27.0-31.0); Mean Corpuscular Volume 95.3 fL (78.0-98.0); Mean Platelet Volume 6.3 fL (7.4-10.4); Platelet Count 444 thou/uL (130-400); White Blood Cell (WBC) Count 9.7 thou/uL (4.8-10.8)
[2018-08-20] MEDS: Polyethylene Glycol 3350 17 GM Packet PO SCH (09:20)
[2018-08-20] MEDS: Enoxaparin Sodium 40 MG/0.4 ML SYRINGE SC SCH ×2 (09:20→21:24)
[2018-08-20] MEDS: Ferrous Gluconate 324 MG TAB PO SCH ×2 (09:21→21:24)
[2018-08-20] MEDS: Multivitamin W/ Minerals 1 TAB PO SCH (09:21)
[2018-08-20] MEDS: Ascorbic Acid 500 mg Chewable Tablet PO SCH ×2 (09:21→21:24)
[2018-08-20] MEDS: Senokot S 8.6-50 MG TAB PO SCH ×2 (09:21→21:24)
[2018-08-20] MEDS: Aspirin 81 mg Enteric Coated Tablet PO SCH ×2 (09:21→21:25)
[2018-08-20] MEDS: Metoprolol Tartrate 25 MG TAB PO SCH ×2 (09:21→21:24)
[2018-08-20] MEDS: traMADol HCl 50 MG TAB PO PRN ×2 (10:41→21:24)
[2018-08-20] MEDS ORDERED: Morphine 4 MG/ML VIAL ONE (11:14)
[2018-08-20] MEDS ORDERED: Morphine 4 MG/ML VIAL SLOW IVP SCH (11:30)
[2018-08-20] MEDS: Lisinopril 10 MG TAB PO SCH (12:14)
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
[2018-08-20] MEDS: Melatonin 3 MG TAB PO SCH (21:25)
[2018-08-21] MEDS: Acetaminophen 500 MG TAB PO SCH ×4 (00:30→19:02)
[2018-08-21] MEDS: Ibuprofen 600 MG TAB PO SCH ×3 (06:27→21:11)
[2018-08-21 06:47] LABS: Hemoglobin 7.5 g/dL (14.0-18.0); Mean Corpuscular HGB CONC 33.2 g/dL (32.0-36.0); Mean Corpuscular Hemoglobin 31.7 pg (27.0-31.0); Mean Corpuscular Volume 95.5 fL (78.0-98.0); Mean Platelet Volume 6.3 fL (7.4-10.4); Platelet Count 471 thou/uL (130-400); RBC Distribution Width 13.5 % (11.5-14.5); Red Blood Cell (RBC) Count 2.37 mill/uL (4.70-6.10); White Blood Cell (WBC) Count 9.1 thou/uL (4.8-10.8)
[2018-08-21] MEDS: traMADol HCl 50 MG TAB PO PRN ×2 (09:09→21:11)
[2018-08-21] MEDS: Polyethylene Glycol 3350 17 GM Packet PO SCH (09:11)
[2018-08-21] MEDS: Enoxaparin Sodium 40 MG/0.4 ML SYRINGE SC SCH ×2 (09:11→21:11)
[2018-08-21] MEDS: Metoprolol Tartrate 25 MG TAB PO SCH ×2 (09:12→21:11)
[2018-08-21] MEDS: Ascorbic Acid 500 mg Chewable Tablet PO SCH ×2 (09:12→21:11)
[2018-08-21] MEDS: Senokot S 8.6-50 MG TAB PO SCH ×2 (09:12→20:17)
[2018-08-21] MEDS: Ferrous Gluconate 324 MG TAB PO SCH ×2 (09:12→21:11)
[2018-08-21] MEDS: Aspirin 81 mg Enteric Coated Tablet PO SCH ×2 (09:12→21:11)
[2018-08-21] MEDS: Multivitamin W/ Minerals 1 TAB PO SCH (09:13)
[2018-08-21] MEDS: HumaLOG 300 UNITS/3 ML VIAL SC PRN ×2 (11:40→19:02)
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
[2018-08-21] MEDS: Lisinopril 10 MG TAB PO SCH (15:19)
[2018-08-21] MEDS: Melatonin 3 MG TAB PO SCH (21:15)
[2018-08-22] MEDS: Acetaminophen 500 MG TAB PO SCH ×4 (00:51→18:46)
[2018-08-22] MEDS: Ibuprofen 600 MG TAB PO SCH ×3 (06:02→21:15)
[2018-08-22] MEDS: HumaLOG 300 UNITS/3 ML VIAL SC PRN ×4 (06:08→21:14)
[2018-08-22] MEDS: Enoxaparin Sodium 40 MG/0.4 ML SYRINGE SC SCH ×2 (09:25→20:25)
[2018-08-22] MEDS: Polyethylene Glycol 3350 17 GM Packet PO SCH (09:25)
[2018-08-22] MEDS: Senokot S 8.6-50 MG TAB PO SCH (09:26)
[2018-08-22] MEDS: Metoprolol Tartrate 25 MG TAB PO SCH ×2 (09:26→20:26)
[2018-08-22] MEDS: Ferrous Gluconate 324 MG TAB PO SCH ×2 (09:26→20:26)
[2018-08-22] MEDS: Ascorbic Acid 500 mg Chewable Tablet PO SCH ×2 (09:26→20:25)
[2018-08-22] MEDS: Aspirin 81 mg Enteric Coated Tablet PO SCH ×2 (09:26→20:25)
[2018-08-22] MEDS: Multivitamin W/ Minerals 1 TAB PO SCH (09:29)
[2018-08-22] MEDS ORDERED: Lisinopril 10 MG TAB PO SCH (10:06)
[2018-08-22] MEDS: Lisinopril 20 MG TAB PO SCH (14:53)
[2018-08-22] MEDS: Melatonin 3 MG TAB PO SCH (20:26)
[2018-08-23] MEDS: Acetaminophen 500 MG TAB PO SCH ×4 (00:42→18:12)
[2018-08-23] MEDS: HumaLOG 300 UNITS/3 ML VIAL SC PRN ×4 (05:46→20:24)
[2018-08-23] MEDS: Ibuprofen 600 MG TAB PO SCH ×3 (05:46→22:07)
[2018-08-23 06:49] LABS: #Eosinphils 0.3 thou/uL (0.0-0.7); #Monocytes 0.8 thou/uL (0.11-0.59); #Neutrophils 8.8 thou/uL (1.40-6.50); %Basophils 0.4 % (0.0-1.0); %Eosinophils 2.1 % (0.0-10.0); %Monocytes 6.9 % (0.0-10.0); %Neutrophils 73.6 % (42.0-75.0); Hemoglobin 7.8 g/dL (14.0-18.0); Mean Corpuscular Hemoglobin 31.8 pg (27.0-31.0); Mean Corpuscular Volume 96.6 fL (78.0-98.0); Mean Platelet Volume 6.2 fL (7.4-10.4); Platelet Count 537 thou/uL (130-400); RBC Distribution Width 14.1 % (11.5-14.5); Red Blood Cell (RBC) Count 2.45 mill/uL (4.70-6.10)
[2018-08-23 07:11] LABS: Anion Gap 11 mmol/L (10-20); BUN (Urea Nitrogen) 10 mg/dL (8.4-25.7); Calc. Creatinine Clearance 199 mL/min (70-130); Calcium 8.8 mg/dL (7.8-10.44); Carbon Dioxide 27 mmol/L (22-29); Chloride 102 mmol/L (98-107); Estimated GFR-MDRD Greater than 90; Glucose 159 mg/dL (70-105); Magnesium 2.1 mg/dL (1.6-2.6); Phosphorus 4.1 mg/dL (2.3-4.7); Potassium 4.5 mmol/L (3.5-5.1); Sodium 135 mmol/L (136-145)
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
[2018-08-23] MEDS: Enoxaparin Sodium 40 MG/0.4 ML SYRINGE SC SCH ×2 (09:19→20:23)
[2018-08-23] MEDS: Polyethylene Glycol 3350 17 GM Packet PO SCH (09:21)
[2018-08-23] MEDS: Ferrous Gluconate 324 MG TAB PO SCH ×2 (09:21→20:26)
[2018-08-23] MEDS: Aspirin 81 mg Enteric Coated Tablet PO SCH ×2 (09:21→20:26)
[2018-08-23] MEDS: Multivitamin W/ Minerals 1 TAB PO SCH (09:21)
[2018-08-23] MEDS: Ascorbic Acid 500 mg Chewable Tablet PO SCH ×2 (09:21→20:26)
[2018-08-23] MEDS: Senokot S 8.6-50 MG TAB PO SCH ×2 (09:22→20:26)
[2018-08-23] MEDS: Metoprolol Tartrate 25 MG TAB PO SCH ×2 (09:23→20:26)
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
[2018-08-23] MEDS: Lisinopril 20 MG TAB PO SCH (13:28)
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
[2018-08-23] MEDS: Melatonin 3 MG TAB PO SCH (20:26)
[2018-08-24] MEDS: Acetaminophen 500 MG TAB PO SCH ×4 (00:20→17:16)
[2018-08-24] MEDS: traMADol HCl 50 MG TAB PO PRN (00:20)
[2018-08-24] MEDS: Ibuprofen 600 MG TAB PO SCH ×3 (06:06→21:08)
[2018-08-24] MEDS: HumaLOG 300 UNITS/3 ML VIAL SC PRN ×4 (06:13→21:08)
[2018-08-24] MEDS: Polyethylene Glycol 3350 17 GM Packet PO SCH (09:51)
[2018-08-24] MEDS: Enoxaparin Sodium 40 MG/0.4 ML SYRINGE SC SCH ×2 (09:51→20:57)
[2018-08-24] MEDS: Ferrous Gluconate 324 MG TAB PO SCH ×2 (09:51→20:57)
[2018-08-24] MEDS: Aspirin 81 mg Enteric Coated Tablet PO SCH ×2 (09:52→20:57)
[2018-08-24] MEDS: Multivitamin W/ Minerals 1 TAB PO SCH (09:52)
[2018-08-24] MEDS: Metoprolol Tartrate 25 MG TAB PO SCH ×2 (09:52→20:57)
[2018-08-24] MEDS: Senokot S 8.6-50 MG TAB PO SCH ×2 (09:52→20:57)
[2018-08-24] MEDS: Ascorbic Acid 500 mg Chewable Tablet PO SCH ×2 (09:52→20:57)
[2018-08-24 10:16] LABS: Hemoglobin 7.7 g/dL (14.0-18.0); Mean Corpuscular HGB CONC 31.4 g/dL (32.0-36.0); Mean Corpuscular Hemoglobin 30.5 pg (27.0-31.0); Mean Corpuscular Volume 97.2 fL (78.0-98.0); Mean Platelet Volume 6.2 fL (7.4-10.4); Platelet Count 658 thou/uL (130-400); RBC Distribution Width 14.5 % (11.5-14.5); Red Blood Cell (RBC) Count 2.51 mill/uL (4.70-6.10); White Blood Cell (WBC) Count 11.9 thou/uL (4.8-10.8)
[2018-08-24 11:31] LABS: Band 1 % (5-11); Eosinophils 1 % (0-10); Lymphocytes 18 % (21-51); MDiff Complete? YES; Monocytes 3 % (0-10); Neutrophil 77 % (42-75); Platelet Morphology Comment Appears Increased; Polychromasia SLIGHT = 2-3 cells (100X) (0-2/hpf)
[2018-08-24] MEDS: Lisinopril 20 MG TAB PO SCH (12:14)
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
[2018-08-24] MEDS: Melatonin 3 MG TAB PO SCH (20:57)
[2018-08-25] MEDS: Acetaminophen 500 MG TAB PO SCH ×5 (00:09→23:19)
[2018-08-25] MEDS: Ibuprofen 600 MG TAB PO SCH ×3 (05:34→21:03)
[2018-08-25] MEDS ORDERED: Dextrose 5% in Water 1,000 ML IV PRN (06:11)
[2018-08-25] MEDS ORDERED: Dextrose 50% Abboject 50 ML SYRINGE SLOW IVP PRN (06:11)
[2018-08-25] MEDS: HumaLOG 300 UNITS/3 ML VIAL SC PRN ×4 (06:28→21:04)
[2018-08-25 08:06] LABS: Mean Corpuscular HGB CONC 32.2 g/dL (32.0-36.0); Mean Corpuscular Hemoglobin 31.3 pg (27.0-31.0); Mean Corpuscular Volume 97.3 fL (78.0-98.0); Mean Platelet Volume 6.2 fL (7.4-10.4); Platelet Count 524 thou/uL (130-400); RBC Distribution Width 14.1 % (11.5-14.5); Red Blood Cell (RBC) Count 2.55 mill/uL (4.70-6.10); White Blood Cell (WBC) Count 13.3 thou/uL (4.8-10.8)
[2018-08-25 08:09] LABS: Anion Gap 15 mmol/L (10-20); BUN (Urea Nitrogen) 9 mg/dL (8.4-25.7); Calc. Creatinine Clearance 199 mL/min (70-130); Calcium 8.8 mg/dL (7.8-10.44); Carbon Dioxide 25 mmol/L (22-29); Chloride 101 mmol/L (98-107); Estimated GFR-MDRD Greater than 90; Glucose 141 mg/dL (70-105); Magnesium 2.1 mg/dL (1.6-2.6); Phosphorus 4.5 mg/dL (2.3-4.7); Potassium 4.9 mmol/L (3.5-5.1); Sodium 136 mmol/L (136-145)
[2018-08-25 09:43] LABS: Eosinophils 2 % (0-10); Lymphocytes 14 % (21-51); MDiff Complete? YES; Monocytes 4 % (0-10); Neutrophil 80 % (42-75); Platelet Morphology Comment Appears Adequate; Polychromasia SLIGHT = 2-3 cells (100X) (0-2/hpf)
[2018-08-25] MEDS: Ascorbic Acid 500 mg Chewable Tablet PO SCH ×2 (09:43→21:03)
[2018-08-25] MEDS: Enoxaparin Sodium 40 MG/0.4 ML SYRINGE SC SCH ×2 (09:43→21:02)
[2018-08-25] MEDS: Metoprolol Tartrate 25 MG TAB PO SCH ×2 (09:44→21:03)
[2018-08-25] MEDS: Polyethylene Glycol 3350 17 GM Packet PO SCH (09:44)
[2018-08-25] MEDS: Multivitamin W/ Minerals 1 TAB PO SCH (09:44)
[2018-08-25] MEDS: Senokot S 8.6-50 MG TAB PO SCH ×2 (09:44→21:03)
[2018-08-25] MEDS: Ferrous Gluconate 324 MG TAB PO SCH ×2 (09:44→21:03)
[2018-08-25] MEDS: traMADol HCl 50 MG TAB PO PRN (09:58)
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
[2018-08-25] MEDS: Lisinopril 20 MG TAB PO SCH (12:57)
[2018-08-25] MEDS: Melatonin 3 MG TAB PO SCH (21:03)
[2018-08-26] MEDS: Acetaminophen 500 MG TAB PO SCH ×4 (06:57→23:31)
[2018-08-26] MEDS: Ibuprofen 600 MG TAB PO SCH ×3 (06:57→21:48)
[2018-08-26] MEDS: Multivitamin W/ Minerals 1 TAB PO SCH (08:20)
[2018-08-26] MEDS: Ascorbic Acid 500 mg Chewable Tablet PO SCH ×2 (08:20→21:47)
[2018-08-26] MEDS: Metoprolol Tartrate 25 MG TAB PO SCH ×2 (08:21→21:47)
[2018-08-26] MEDS: Polyethylene Glycol 3350 17 GM Packet PO SCH (08:21)
[2018-08-26] MEDS: Enoxaparin Sodium 40 MG/0.4 ML SYRINGE SC SCH ×2 (08:21→21:57)
[2018-08-26] MEDS: Ferrous Gluconate 324 MG TAB PO SCH ×2 (08:21→21:48)
[2018-08-26] MEDS: Senokot S 8.6-50 MG TAB PO SCH ×2 (08:21→21:49)
[2018-08-26] MEDS ORDERED: Bupivacaine HCl 0.5%/Epinephrine 1:200,000/PF 30 ml Vial ONE (11:00)
[2018-08-26] MEDS ORDERED: Bupivacaine 0.25% HCL 30 ML VIAL ONE (11:00)
[2018-08-26] MEDS ORDERED: EPINEPHrine 1 MG/ML AMP ONE (11:00)
[2018-08-26] MEDS ORDERED: Fentanyl 100 MCG/2 ML VIAL ONE (11:22)
[2018-08-26] MEDS ORDERED: CEFAZOLIN 2 GM/50 ML BAG ONE (12:02)
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
[2018-08-26] MEDS ORDERED: Ondansetron HCl/PF 4 MG/2 ML Vial IVP PRN (13:07)
[2018-08-26] MEDS: Lisinopril 20 MG TAB PO SCH (13:21)
[2018-08-26] MEDS ORDERED: Dexamethasone 20 MG/5 ML VIAL ONE (13:35)
[2018-08-26] MEDS ORDERED: Ondansetron PF 4 MG/2 ML Vial ONE (13:35)
[2018-08-26] MEDS ORDERED: Ketorolac Tromethamine 30 MG/ML VIAL ONE (13:35)
[2018-08-26] MEDS ORDERED: Calcium Chloride 1 GM/10 ML Abboject SYRINGE ONE (13:35)
[2018-08-26] MEDS ORDERED: PHENYLEPHRINE-NS 100 MCG/ML 10 ML SYRINGE ONE (13:35)
[2018-08-26] MEDS ORDERED: PROPOFOL 200 MG/20 ML VIAL ONE (13:35)
[2018-08-26] MEDS ORDERED: ePHEDrine 50 MG/ML VIAL ONE (13:35)
[2018-08-26] MEDS ORDERED: Lidocaine 1% PF 5 ML VIAL ONE (13:35)
--- NOTE | 2018-08-26 14:55 | OP ---
DATE OF PROCEDURE: 08/26/2018 PREOPERATIVE DIAGNOSIS: Open wound, right leg. POSTOPERATIVE DIAGNOSIS: Open wound, right leg. OPERATIVE FINDINGS: Purulent drainage from underneath skin flap. PROCEDURE PERFORMED: Debridement of right leg wound for skin and subcutaneus tissue. DESCRIPTION OF PROCEDURE: Following the induction of adequate anesthesia, the patient was prepped and draped in the usual sterile fashion in the supine position. The patient's wound VAC was removed prior to prepping. Purulent drainage was noted to come from beneath the traumatically raised skin flap just above the tendons. The tissue also for the distal third of that flap appeared to be necrotic. A possible reconstructions for the day was turned into a debridement. The nonviable skin and subcutaneous tissue were sharply debrided. The wound was then copiously irrigated and inspected for meticulous hemostasis. Also, the patient had a large cavitary thigh wound that has been getting wound VAC. Chinedu was placed under the flap to facilitate the function of the wound VAC. The patient tolerated the procedure well. I will recommend transfer for consideration of free flap. Job ID: [id number]
[2018-08-26 16:22] LABS: #Basophils 0.1 thou/uL (0.0-0.2); #Lymphocytes 0.9 thou/uL (1.20-3.40); #Monocytes 0.3 thou/uL (0.11-0.59); %Basophils 0.3 % (0.0-1.0); %Eosinophils 0.2 % (0.0-10.0); %Lymphocytes 4.9 % (21.0-51.0); %Monocytes 1.5 % (0.0-10.0); Hemoglobin 8.6 g/dL (14.0-18.0); Mean Corpuscular HGB CONC 32.2 g/dL (32.0-36.0); Mean Corpuscular Hemoglobin 31.5 pg (27.0-31.0); Mean Corpuscular Volume 97.8 fL (78.0-98.0); Mean Platelet Volume 6.1 fL (7.4-10.4); Platelet Count 741 thou/uL (130-400); Red Blood Cell (RBC) Count 2.74 mill/uL (4.70-6.10); White Blood Cell (WBC) Count 18.3 thou/uL (4.8-10.8)
[2018-08-26] MEDS: HumaLOG 300 UNITS/3 ML VIAL SC PRN ×2 (16:36→22:00)
[2018-08-26 16:41] LABS: Anion Gap 15 mmol/L (10-20); BUN (Urea Nitrogen) 13 mg/dL (8.4-25.7); Calc. Creatinine Clearance 139 mL/min (70-130); Calcium 9.4 mg/dL (7.8-10.44); Carbon Dioxide 25 mmol/L (22-29); Chloride 99 mmol/L (98-107); Estimated GFR-MDRD 68; Glucose 211 mg/dL (70-105); Phosphorus 5.4 mg/dL (2.3-4.7); Potassium 5.3 mmol/L (3.5-5.1); Sodium 134 mmol/L (136-145)
[2018-08-26] MEDS: Melatonin 3 MG TAB PO SCH (21:47)
[2018-08-27] MEDS: Ibuprofen 600 MG TAB PO SCH ×3 (05:39→21:22)
[2018-08-27] MEDS: Acetaminophen 500 MG TAB PO SCH ×4 (05:40→23:59)
[2018-08-27] MEDS: HumaLOG 300 UNITS/3 ML VIAL SC PRN ×3 (05:41→21:30)
[2018-08-27] MEDS ORDERED: VANCOMYCIN IVPB PRN (08:11)
[2018-08-27] MEDS: Ascorbic Acid 500 mg Chewable Tablet PO SCH ×2 (08:32→21:21)
[2018-08-27] MEDS: Senokot S 8.6-50 MG TAB PO SCH ×2 (08:32→21:26)
[2018-08-27] MEDS: Polyethylene Glycol 3350 17 GM Packet PO SCH (08:32)
[2018-08-27] MEDS: Metoprolol Tartrate 25 MG TAB PO SCH ×2 (08:33→21:24)
[2018-08-27] MEDS: Enoxaparin Sodium 40 MG/0.4 ML SYRINGE SC SCH ×2 (08:33→21:24)
[2018-08-27] MEDS: Multivitamin W/ Minerals 1 TAB PO SCH (08:33)
[2018-08-27] MEDS: Ferrous Gluconate 324 MG TAB PO SCH ×2 (08:33→21:22)
[2018-08-27] MEDS ORDERED: Vancomycin HCl 1 GM in Premix Bag 1 BAG IVPB SCH (09:00)
[2018-08-27] MEDS: Lisinopril 20 MG TAB PO SCH (12:18)
[2018-08-27 12:22] LABS: #Basophils 0.1 thou/uL (0.0-0.2); #Eosinphils 0.2 thou/uL (0.0-0.7); #Lymphocytes 2.6 thou/uL (1.20-3.40); #Monocytes 0.8 thou/uL (0.11-0.59); #Neutrophils 7.8 thou/uL (1.40-6.50); %Basophils 0.7 % (0.0-1.0); %Eosinophils 1.7 % (0.0-10.0); %Lymphocytes 22.4 % (21.0-51.0); %Monocytes 6.7 % (0.0-10.0); %Neutrophils 68.5 % (42.0-75.0); Hemoglobin 7.8 g/dL (14.0-18.0); Mean Corpuscular HGB CONC 32.1 g/dL (32.0-36.0); Mean Corpuscular Hemoglobin 31.4 pg (27.0-31.0); Mean Corpuscular Volume 97.8 fL (78.0-98.0); Mean Platelet Volume 6.2 fL (7.4-10.4); Platelet Count 788 thou/uL (130-400); RBC Distribution Width 13.9 % (11.5-14.5); Red Blood Cell (RBC) Count 2.48 mill/uL (4.70-6.10); White Blood Cell (WBC) Count 11.4 thou/uL (4.8-10.8)
[2018-08-27 12:42] LABS: Anion Gap 10 mmol/L (10-20); BUN (Urea Nitrogen) 18 mg/dL (8.4-25.7); Calc. Creatinine Clearance 165 mL/min (70-130); Calcium 8.6 mg/dL (7.8-10.44); Carbon Dioxide 30 mmol/L (22-29); Chloride 101 mmol/L (98-107); Estimated GFR-MDRD 83; Glucose 190 mg/dL (70-105); Phosphorus 4.6 mg/dL (2.3-4.7); Potassium 4.5 mmol/L (3.5-5.1); Sodium 136 mmol/L (136-145)
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
[2018-08-27] MEDS: Cefepime 2 GM in Sodium Chloride 0.9% 100 ML IVPB SCH (14:23)
[2018-08-27] MEDS: traMADol HCl 50 MG TAB PO PRN (19:45)
[2018-08-27] MEDS: Melatonin 3 MG TAB PO SCH (21:21)
--- NOTE | 2018-08-27 22:23 | PRG ---
DATE OF SERVICE: 08/27/2018 SUBJECTIVE: The patient is without complaints. OBJECTIVE: VITAL SIGNS: Stable. EXTREMITIES: Wound VAC is in place. LABORATORY DATA: Microbiology results are presumptive Pseudomonas. ASSESSMENT: 1. Open leg wound. The patient has presumptive Pseudomonas infection. He is on vancomycin and cefepime. I recommend continuing his antibiotics as well as transfer for a free flap. Job ID: [id number]
[2018-08-28] MEDS: Cefepime 2 GM in Sodium Chloride 0.9% 100 ML IVPB SCH ×2 (00:24→12:59)
[2018-08-28] MEDS: traMADol HCl 50 MG TAB PO PRN ×2 (01:45→23:13)
[2018-08-28] MEDS: Acetaminophen 500 MG TAB PO SCH ×4 (05:32→23:12)
[2018-08-28] MEDS: Ibuprofen 600 MG TAB PO SCH ×3 (05:32→20:23)
[2018-08-28 06:18] LABS: #Basophils 0.1 thou/uL (0.0-0.2); #Eosinphils 0.2 thou/uL (0.0-0.7); #Lymphocytes 2.1 thou/uL (1.20-3.40); #Monocytes 0.5 thou/uL (0.11-0.59); #Neutrophils 4.7 thou/uL (1.40-6.50); %Basophils 0.7 % (0.0-1.0); %Eosinophils 2.6 % (0.0-10.0); %Lymphocytes 27.7 % (21.0-51.0); Hemoglobin 7.9 g/dL (14.0-18.0); Mean Corpuscular HGB CONC 32.3 g/dL (32.0-36.0); Mean Corpuscular Hemoglobin 31.6 pg (27.0-31.0); Mean Corpuscular Volume 97.8 fL (78.0-98.0); Mean Platelet Volume 6.2 fL (7.4-10.4); Platelet Count 627 thou/uL (130-400); RBC Distribution Width 14.3 % (11.5-14.5); Red Blood Cell (RBC) Count 2.49 mill/uL (4.70-6.10); White Blood Cell (WBC) Count 7.7 thou/uL (4.8-10.8)
[2018-08-28 06:38] LABS: Anion Gap 13 mmol/L (10-20); BUN (Urea Nitrogen) 18 mg/dL (8.4-25.7); Calc. Creatinine Clearance 201 mL/min (70-130); Calcium 8.6 mg/dL (7.8-10.44); Carbon Dioxide 25 mmol/L (22-29); Chloride 103 mmol/L (98-107); Estimated GFR-MDRD Greater than 90; Glucose 127 mg/dL (70-105); Phosphorus 4.2 mg/dL (2.3-4.7); Potassium 4.9 mmol/L (3.5-5.1)
[2018-08-28 07:15] LABS: Sodium 136 mmol/L (136-145)
[2018-08-28] MEDS: Ascorbic Acid 500 mg Chewable Tablet PO SCH ×2 (09:28→20:32)
[2018-08-28] MEDS: Metoprolol Tartrate 25 MG TAB PO SCH ×2 (09:28→20:32)
[2018-08-28] MEDS: Multivitamin W/ Minerals 1 TAB PO SCH (09:28)
[2018-08-28] MEDS: Ferrous Gluconate 324 MG TAB PO SCH ×2 (09:29→20:32)
[2018-08-28] MEDS: Senokot S 8.6-50 MG TAB PO SCH ×2 (09:29→20:39)
[2018-08-28] MEDS: Polyethylene Glycol 3350 17 GM Packet PO SCH (09:29)
[2018-08-28] MEDS: Enoxaparin Sodium 40 MG/0.4 ML SYRINGE SC SCH ×2 (09:31→20:41)
[2018-08-28] MEDS: Lisinopril 20 MG TAB PO SCH (15:08)
[2018-08-28] MEDS: HumaLOG 300 UNITS/3 ML VIAL SC PRN (17:15)
[2018-08-28] MEDS: Melatonin 3 MG TAB PO SCH (20:32)
[2018-08-28 22:00] LABS: Vancomycin, Trough 14.8 ug/mL
[2018-08-29] MEDS: Cefepime 2 GM in Sodium Chloride 0.9% 100 ML IVPB SCH ×2 (02:09→12:19)
[2018-08-29 04:58] LABS: Anion Gap 12 mmol/L (10-20); BUN (Urea Nitrogen) 17 mg/dL (8.4-25.7); Calc. Creatinine Clearance 209 mL/min (70-130); Calcium 8.7 mg/dL (7.8-10.44); Carbon Dioxide 27 mmol/L (22-29); Chloride 102 mmol/L (98-107); Estimated GFR-MDRD Greater than 90; Glucose 150 mg/dL (70-105); Phosphorus 3.6 mg/dL (2.3-4.7); Sodium 136 mmol/L (136-145)
[2018-08-29 06:38] LABS: Band 7 % (5-11); Eosinophils 2 % (0-10); Hemoglobin 8.3 g/dL (14.0-18.0); Hypochromia SLIGHT = 6-15 cells (100X) (0-5/hpf); Lymphocytes 16 % (21-51); MDiff Complete? YES; Mean Corpuscular Hemoglobin 31.2 pg (27.0-31.0); Mean Corpuscular Volume 97.5 fL (78.0-98.0); Mean Platelet Volume 6.1 fL (7.4-10.4); Monocytes 3 % (0-10); Neutrophil 72 % (42-75); Platelet Count 747 thou/uL (130-400); RBC Distribution Width 13.9 % (11.5-14.5); Red Blood Cell (RBC) Count 2.66 mill/uL (4.70-6.10); White Blood Cell (WBC) Count 8.8 thou/uL (4.8-10.8)
[2018-08-29] MEDS: Acetaminophen 500 MG TAB PO SCH ×3 (06:48→18:09)
[2018-08-29] MEDS: Ibuprofen 600 MG TAB PO SCH ×3 (06:48→22:12)
[2018-08-29] MEDS: HumaLOG 300 UNITS/3 ML VIAL SC PRN ×4 (06:51→20:42)
[2018-08-29] MEDS: traMADol HCl 50 MG TAB PO PRN (08:44)
[2018-08-29] MEDS: Clindamycin/D5W 600 MG in Premix Bag 1 BAG IVPB SCH ×3 (08:46→20:36)
[2018-08-29] MEDS: Polyethylene Glycol 3350 17 GM Packet PO SCH (08:47)
[2018-08-29] MEDS: Ferrous Gluconate 324 MG TAB PO SCH ×2 (08:47→20:36)
[2018-08-29] MEDS: Ascorbic Acid 500 mg Chewable Tablet PO SCH ×2 (08:47→20:36)
[2018-08-29] MEDS: Saccharomyces boulardii 250 MG CAP PO SCH (08:47)
[2018-08-29] MEDS: Enoxaparin Sodium 40 MG/0.4 ML SYRINGE SC SCH ×2 (08:47→20:34)
[2018-08-29] MEDS: Senokot S 8.6-50 MG TAB PO SCH ×2 (08:47→20:35)
[2018-08-29] MEDS: Multivitamin W/ Minerals 1 TAB PO SCH (08:48)
[2018-08-29] MEDS: Metoprolol Tartrate 25 MG TAB PO SCH ×2 (08:48→20:35)
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
[2018-08-29] MEDS: Lisinopril 20 MG TAB PO SCH (12:19)
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
[2018-08-29] MEDS: Melatonin 3 MG TAB PO SCH (20:36)
[2018-08-30] MEDS: Cefepime 2 GM in Sodium Chloride 0.9% 100 ML IVPB SCH ×2 (00:41→13:06)
[2018-08-30] MEDS: Acetaminophen 500 MG TAB PO SCH ×5 (00:41→23:28)
[2018-08-30] MEDS: Sodium Chloride 0.9% 1,000 ML IV SCH ×4 (00:53→23:28)
[2018-08-30] MEDS: Ibuprofen 600 MG TAB PO SCH ×3 (05:43→21:09)
[2018-08-30 07:45] LABS: #Basophils 0.1 thou/uL (0.0-0.2); #Eosinphils 0.3 thou/uL (0.0-0.7); #Lymphocytes 1.7 thou/uL (1.20-3.40); #Monocytes 0.6 thou/uL (0.11-0.59); #Neutrophils 4.5 thou/uL (1.40-6.50); %Basophils 1.1 % (0.0-1.0); %Eosinophils 4.4 % (0.0-10.0); %Monocytes 8.1 % (0.0-10.0); %Neutrophils 62.4 % (42.0-75.0); Hemoglobin 8.7 g/dL (14.0-18.0); Mean Corpuscular HGB CONC 31.4 g/dL (32.0-36.0); Mean Corpuscular Hemoglobin 30.6 pg (27.0-31.0); Mean Corpuscular Volume 97.7 fL (78.0-98.0); Mean Platelet Volume 6.3 fL (7.4-10.4); Platelet Count 902 thou/uL (130-400); RBC Distribution Width 14.1 % (11.5-14.5); Red Blood Cell (RBC) Count 2.85 mill/uL (4.70-6.10); White Blood Cell (WBC) Count 7.2 thou/uL (4.8-10.8)
[2018-08-30] MEDS: Metoprolol Tartrate 25 MG TAB PO SCH ×2 (07:52→21:11)
[2018-08-30] MEDS: Clindamycin/D5W 600 MG in Premix Bag 1 BAG IVPB SCH ×3 (07:54→21:09)
[2018-08-30 08:19] LABS: Anion Gap 13 mmol/L (10-20); BUN (Urea Nitrogen) 15 mg/dL (8.4-25.7); Calc. Creatinine Clearance 201 mL/min (70-130); Carbon Dioxide 27 mmol/L (22-29); Chloride 103 mmol/L (98-107); Estimated GFR-MDRD Greater than 90; Glucose 126 mg/dL (70-105); Phosphorus 3.9 mg/dL (2.3-4.7); Potassium 4.5 mmol/L (3.5-5.1); Sodium 138 mmol/L (136-145)
[2018-08-30] MEDS ORDERED: Aspirin 81 mg Enteric Coated Tablet PO ONE (09:00)
[2018-08-30] MEDS ORDERED: Aspirin 81 mg Enteric Coated Tablet PO SCH (09:00)
[2018-08-30] MEDS: Enoxaparin Sodium 40 MG/0.4 ML SYRINGE SC SCH ×2 (10:22→21:11)
[2018-08-30] MEDS: Ferrous Gluconate 324 MG TAB PO SCH ×2 (10:22→21:11)
[2018-08-30] MEDS: Ascorbic Acid 500 mg Chewable Tablet PO SCH ×2 (10:22→21:10)
[2018-08-30] MEDS: Multivitamin W/ Minerals 1 TAB PO SCH (10:22)
[2018-08-30] MEDS: Polyethylene Glycol 3350 17 GM Packet PO SCH (10:23)
[2018-08-30] MEDS: Senokot S 8.6-50 MG TAB PO SCH ×3 (10:23→21:11)
[2018-08-30] MEDS ORDERED: Midazolam HCl 2 mg/2 ml Vial ONE (12:14)
[2018-08-30] MEDS ORDERED: Fentanyl 100 MCG/2 ML VIAL ONE (12:14)
[2018-08-30] MEDS ORDERED: Neomycin-Polymyxin 1 ML AMP ONE ×3 (12:24→13:42)
[2018-08-30] MEDS: Saccharomyces boulardii 250 MG CAP PO SCH (13:06)
[2018-08-30] MEDS: Lisinopril 20 MG TAB PO SCH (13:07)
[2018-08-30] MEDS ORDERED: Fleet Enema 133 ML BOT PR PRN (14:35)
[2018-08-30] MEDS ORDERED: Ondansetron PF 4 MG/2 ML Vial IVP PRN (14:35)
[2018-08-30] MEDS ORDERED: Bisacodyl 10 MG SUPP PR PRN (14:35)
[2018-08-30] MEDS ORDERED: Cepastat Lozenges 1 LOZ PO PRN (14:35)
[2018-08-30] MEDS ORDERED: Milk Of Magnesia 30 ML UDCUP PO PRN (14:35)
[2018-08-30] MEDS ORDERED: Ondansetron ODT 4 MG TAB PO PRN (14:35)
[2018-08-30] MEDS ORDERED: Ondansetron HCl/PF 4 MG/2 ML Vial IVP PRN (14:55)
[2018-08-30] MEDS ORDERED: Promethazine HCl 25 MG/ML VIAL SLOW IVP PRN (14:55)
[2018-08-30] MEDS ORDERED: Promethazine HCl 25 MG/ML VIAL IM PRN (14:55)
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
[2018-08-30] MEDS ORDERED: PROPOFOL 200 MG/20 ML VIAL ONE (16:23)
[2018-08-30] MEDS ORDERED: Ondansetron PF 4 MG/2 ML Vial ONE (16:23)
[2018-08-30] MEDS ORDERED: PHENYLEPHRINE-NS 100 MCG/ML 10 ML SYRINGE ONE (16:23)
[2018-08-30] MEDS ORDERED: ePHEDrine 50 MG/ML VIAL ONE (16:23)
[2018-08-30] MEDS ORDERED: Dexamethasone 20 MG/5 ML VIAL ONE (16:23)
[2018-08-30] MEDS ORDERED: Ketorolac Tromethamine 30 MG/ML VIAL ONE (16:23)
[2018-08-30] MEDS: traMADol HCl 50 MG TAB PO PRN (17:37)
[2018-08-30] MEDS: Ketorolac Tromethamine 30 MG/ML VIAL IVP SCH ×2 (17:41→23:29)
[2018-08-30] MEDS: Melatonin 3 MG TAB PO SCH (21:09)
[2018-08-30] MEDS: HumaLOG 300 UNITS/3 ML VIAL SC PRN (21:19)
[2018-08-30] MEDS ORDERED: Clindamycin/D5W 900 MG in Premix Bag 1 BAG IVPB SCH (22:00)
[2018-08-31] MEDS: Sodium Chloride 0.9% 1,000 ML IV SCH ×3 (01:08→18:47)
[2018-08-31] MEDS: Cefepime 2 GM in Sodium Chloride 0.9% 100 ML IVPB SCH ×2 (01:10→13:08)
[2018-08-31] MEDS: Ketorolac Tromethamine 30 MG/ML VIAL IVP SCH ×3 (06:02→17:41)
[2018-08-31] MEDS: Acetaminophen 500 MG TAB PO SCH ×3 (06:03→17:41)
[2018-08-31] MEDS: Ibuprofen 600 MG TAB PO SCH ×3 (06:03→21:18)
[2018-08-31 06:18] LABS: #Basophils 0.1 thou/uL (0.0-0.2); #Eosinphils 0.1 thou/uL (0.0-0.7); #Lymphocytes 1.9 thou/uL (1.20-3.40); #Monocytes 0.9 thou/uL (0.11-0.59); #Neutrophils 8.2 thou/uL (1.40-6.50); %Basophils 0.6 % (0.0-1.0); %Eosinophils 0.6 % (0.0-10.0); %Monocytes 7.7 % (0.0-10.0); %Neutrophils 74.1 % (42.0-75.0); Hemoglobin 7.9 g/dL (14.0-18.0); Mean Corpuscular HGB CONC 31.5 g/dL (32.0-36.0); Mean Corpuscular Hemoglobin 30.6 pg (27.0-31.0); Mean Platelet Volume 5.8 fL (7.4-10.4); Platelet Count 801 thou/uL (130-400); RBC Distribution Width 14.3 % (11.5-14.5); Red Blood Cell (RBC) Count 2.59 mill/uL (4.70-6.10)
[2018-08-31 06:26] LABS: Anion Gap 12 mmol/L (10-20); BUN (Urea Nitrogen) 14 mg/dL (8.4-25.7); Calc. Creatinine Clearance 215 mL/min (70-130); Calcium 8.6 mg/dL (7.8-10.44); Carbon Dioxide 25 mmol/L (22-29); Chloride 104 mmol/L (98-107); Estimated GFR-MDRD Greater than 90; Glucose 136 mg/dL (70-105); Magnesium 2.2 mg/dL (1.6-2.6); Phosphorus 3.9 mg/dL (2.3-4.7); Potassium 4.5 mmol/L (3.5-5.1); Sodium 136 mmol/L (136-145)
[2018-08-31] MEDS: Senokot S 8.6-50 MG TAB PO SCH ×3 (08:59→21:18)
[2018-08-31] MEDS: Multivitamin W/ Minerals 1 TAB PO SCH ×3 (09:00→09:17)
[2018-08-31] MEDS: Polyethylene Glycol 3350 17 GM Packet PO SCH (09:00)
[2018-08-31] MEDS: Ferrous Gluconate 324 MG TAB PO SCH ×5 (09:01→21:19)
[2018-08-31] MEDS: Enoxaparin Sodium 40 MG/0.4 ML SYRINGE SC SCH ×2 (09:08→21:19)
[2018-08-31] MEDS: Metoprolol Tartrate 25 MG TAB PO SCH ×2 (09:08→21:18)
[2018-08-31] MEDS: Ascorbic Acid 500 mg Chewable Tablet PO SCH ×2 (09:09→21:18)
[2018-08-31] MEDS: Aspirin 325 mg Enteric Coated Tablet PO SCH (09:10)
[2018-08-31] MEDS: Saccharomyces boulardii 250 MG CAP PO SCH (09:12)
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
[2018-08-31] MEDS: Lisinopril 20 MG TAB PO SCH (13:16)
[2018-08-31] MEDS: HumaLOG 300 UNITS/3 ML VIAL SC PRN ×2 (17:39→21:22)
[2018-08-31] MEDS: Melatonin 3 MG TAB PO SCH (21:19)
[2018-09-01] MEDS: Cefepime 2 GM in Sodium Chloride 0.9% 100 ML IVPB SCH ×2 (00:21→12:27)
[2018-09-01] MEDS: Ketorolac Tromethamine 30 MG/ML VIAL IVP SCH ×4 (00:21→17:50)
[2018-09-01] MEDS: Acetaminophen 500 MG TAB PO SCH ×4 (00:29→17:50)
[2018-09-01] MEDS: Ibuprofen 600 MG TAB PO SCH ×3 (06:11→22:11)
[2018-09-01 06:51] LABS: Band 1 % (5-11); Eosinophils 2 % (0-10); Hemoglobin 8.3 g/dL (14.0-18.0); Lymphocytes 15 % (21-51); MDiff Complete? YES; Mean Corpuscular HGB CONC 31.9 g/dL (32.0-36.0); Mean Corpuscular Hemoglobin 31.2 pg (27.0-31.0); Mean Corpuscular Volume 97.8 fL (78.0-98.0); Monocytes 10 % (0-10); Neutrophil 72 % (42-75); Platelet Count 744 thou/uL (130-400); Platelet Morphology Comment Appears Increased; RBC Distribution Width 14.8 % (11.5-14.5); Red Blood Cell (RBC) Count 2.65 mill/uL (4.70-6.10); White Blood Cell (WBC) Count 10.9 thou/uL (4.8-10.8)
[2018-09-01] MEDS: traMADol HCl 50 MG TAB PO PRN ×2 (08:32→15:48)
[2018-09-01] MEDS: Enoxaparin Sodium 40 MG/0.4 ML SYRINGE SC SCH ×2 (10:10→20:49)
[2018-09-01] MEDS: Polyethylene Glycol 3350 17 GM Packet PO SCH (10:11)
[2018-09-01] MEDS: Senokot S 8.6-50 MG TAB PO SCH ×2 (10:13→20:48)
[2018-09-01] MEDS: Multivitamin W/ Minerals 1 TAB PO SCH (10:13)
[2018-09-01] MEDS: Ferrous Gluconate 324 MG TAB PO SCH ×2 (10:13→20:47)
[2018-09-01] MEDS: Aspirin 325 mg Enteric Coated Tablet PO SCH (10:14)
[2018-09-01] MEDS: Saccharomyces boulardii 250 MG CAP PO SCH (10:14)
[2018-09-01] MEDS: Ascorbic Acid 500 mg Chewable Tablet PO SCH ×2 (10:14→20:47)
[2018-09-01] MEDS: Metoprolol Tartrate 25 MG TAB PO SCH ×2 (10:16→20:47)
[2018-09-01] MEDS: HumaLOG 300 UNITS/3 ML VIAL SC PRN ×2 (12:27→22:18)
[2018-09-01] MEDS: Lisinopril 20 MG TAB PO SCH (14:41)
[2018-09-01] MEDS: Melatonin 3 MG TAB PO SCH (20:49)
[2018-09-02] MEDS: Acetaminophen 500 MG TAB PO SCH ×4 (00:30→17:46)
[2018-09-02] MEDS: Cefepime 2 GM in Sodium Chloride 0.9% 100 ML IVPB SCH ×2 (01:46→13:21)
[2018-09-02] MEDS: Ibuprofen 600 MG TAB PO SCH ×2 (05:08→14:24)
[2018-09-02] MEDS: Senokot S 8.6-50 MG TAB PO SCH (07:43)
[2018-09-02] MEDS: Saccharomyces boulardii 250 MG CAP PO SCH (07:43)
[2018-09-02] MEDS: Multivitamin W/ Minerals 1 TAB PO SCH (07:43)
[2018-09-02] MEDS: Ferrous Gluconate 324 MG TAB PO SCH (07:43)
[2018-09-02] MEDS: Aspirin 325 mg Enteric Coated Tablet PO SCH (07:44)
[2018-09-02] MEDS: Ascorbic Acid 500 mg Chewable Tablet PO SCH (07:44)
[2018-09-02] MEDS: Polyethylene Glycol 3350 17 GM Packet PO SCH (07:44)
[2018-09-02] MEDS: Enoxaparin Sodium 40 MG/0.4 ML SYRINGE SC SCH (07:44)
[2018-09-02] MEDS: Metoprolol Tartrate 25 MG TAB PO SCH (07:45)
[2018-09-02] MEDS ORDERED: Zinc Sulfate 220 MG CAP PO SCH (09:00)
[2018-09-02] MEDS: traMADol HCl 50 MG TAB PO PRN ×2 (11:42→17:46)
[2018-09-02] MEDS: HumaLOG 300 UNITS/3 ML VIAL SC PRN (12:19)
[2018-09-02] MEDS: Lisinopril 20 MG TAB PO SCH (13:21)
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
[2018-09-02 19:22] VITALS: BP 109/73; TEMP 97.8
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
== END 2018-09-02 19:20 | disposition short-term general hospital (02) | DRG 958 ==
LOC: ERS 15:52 → IMCU/EMU 17:33 → CCU 22:49 → SJJU 08-15 13:54
PROVIDERS: ADMIT Specialist; ATTEND Specialist
PROC: 0QSG36Z Reposition Right Tibia with Intramedullary Internal Fixation Device, Percutaneous Approach (ICD-10-PCS; principal; 2018-08-13)
PROC: 0QSL34Z Reposition Right Tarsal with Internal Fixation Device, Percutaneous Approach (ICD-10-PCS; 2018-08-13)
PROC: 0JQN0ZZ Repair Right Lower Leg Subcutaneous Tissue and Fascia, Open Approach (ICD-10-PCS; 2018-08-13)
PROC: 0SS Lower Joints, Reposition (ICD-10-PCS; 2018-08-13)
PROC: 0HQHXZZ Repair Right Upper Leg Skin, External Approach (ICD-10-PCS; 2018-08-13)
PROC: 02HV33Z Insertion of Infusion Device into Superior Vena Cava, Percutaneous Approach (ICD-10-PCS; 2018-08-16)
PROC: 0QUG0KZ Supplement Right Tibia with Nonautologous Tissue Substitute, Open Approach (ICD-10-PCS; 2018-08-18)
PROC: 0HQKXZZ Repair Right Lower Leg Skin, External Approach (ICD-10-PCS; 2018-08-18)
PROC: 2W1LX6Z Compression of Right Lower Extremity using Pressure Dressing (ICD-10-PCS; 2018-08-18)
PROC: 0JBN0ZZ Excision of Right Lower Leg Subcutaneous Tissue and Fascia, Open Approach (ICD-10-PCS; 2018-08-26)
PROC: 0HBKXZZ Excision of Right Lower Leg Skin, External Approach (ICD-10-PCS; 2018-08-30)
PROC: 0HBHXZZ Excision of Right Upper Leg Skin, External Approach (ICD-10-PCS; 2018-08-30)
DX: S88.121 Partial traumatic amputation at level between knee and ankle, right lower leg (principal); S32.421A Displaced fracture of posterior wall of right acetabulum, initial encounter for closed fracture; S22.31XA Fracture of one rib, right side, initial encounter for closed fracture; S32.058A Other fracture of fifth lumbar vertebra, initial encounter for closed fracture; S06.0X9A Concussion with loss of consciousness of unspecified duration, initial encounter; S12.040A Displaced lateral mass fracture of first cervical vertebra, initial encounter for closed fracture; N39.0 Urinary tract infection, site not specified; S86.821A Laceration of other muscle(s) and tendon(s) at lower leg level, right leg, initial encounter; E11.65 Type 2 diabetes mellitus with hyperglycemia; V29.49XA Motorcycle driver injured in collision with other motor vehicles in traffic accident, initial encounter; Y92.410 Unspecified street and highway as the place of occurrence of the external cause; I10 Essential (primary) hypertension; S10.83XA Contusion of other specified part of neck, initial encounter; L08.89 Other specified local infections of the skin and subcutaneous tissue; B96.5 Pseudomonas (aeruginosa) (mallei) (pseudomallei) as the cause of diseases classified elsewhere; S40.812A Abrasion of left upper arm, initial encounter; S40.811A Abrasion of right upper arm, initial encounter; S13.4XXA Sprain of ligaments of cervical spine, initial encounter; S92.311A Displaced fracture of first metatarsal bone, right foot, initial encounter for closed fracture; S92.321A Displaced fracture of second metatarsal bone, right foot, initial encounter for closed fracture; S92.331A Displaced fracture of third metatarsal bone, right foot, initial encounter for closed fracture; S92.341A Displaced fracture of fourth metatarsal bone, right foot, initial encounter for closed fracture; S92.191A Other fracture of right talus, initial encounter for closed fracture; S71.111A Laceration without foreign body, right thigh, initial encounter; F17.210 Nicotine dependence, cigarettes, uncomplicated; Z88.0 Allergy status to penicillin
CPT/HCPCS: 27788; 27825; 36415; 36416; 36430; 36569; 51702; 70450; 71045; 71260; 72125; 72141; 72170; 75635; 76000; 80048; 80053; 80202; 81001; 82150; 82805; 83036; 83735; 84100; 84145; 85007; 85025; 85027; 85610; 85730; 86850; 86900; 86901; 87070; 87077; 87086; 87186; 87205; 90471; 90715; 94002; 96365; 96375; 96376; 99292; 99406; C1713; C1751; C1769; C9113; G0390; J0131; J0171; J0360; J0670; J0692; J0744; J1100; J1580; J1644; J1650; J1885; J2001; J2060; J2250; J2270; J2370; J2405; J2704; J3010; J3370; J3475; J3480; J3490; J7050; J7620; P9016; P9047; Q9966; S0020

== ENCOUNTER 2018-12-02 16:16 | Emergency (ER) | payer BC | END 2018-12-02 16:45 | disposition home or self-care (01) | LOC: ERS 16:16 | DX: I10 Essential (primary) hypertension (principal); F41.9 Anxiety disorder, unspecified; Z87.891 Personal history of nicotine dependence | CPT/HCPCS: 99283 ==